=== PATIENT | female | born 1995 | race Caucasian/White ===

== ENCOUNTER 2016-11-11 07:15 | Emergency (ER) | payer BC ==
[~2016-11-11] VITALS: Wt 100.0 kg
[~2016-11-11 07:15] MED LIST: AZIT250T94 PO; PRED20TA PO
[2016-11-11] MEDS ORDERED: ONDANSETRON 4 MG INJ IV STA ×3 (07:33→10:01)
[2016-11-11] MEDS ORDERED: morphine 4 MG/ML VIAL IV STA ×2 (07:33→10:06)
[2016-11-11] MEDS ORDERED: SOD CHLORIDE 0.9% 1,000 ML IV STA (07:33)
--- NOTE | 2016-11-11 07:41 | ERD ---
ER Documentation Chief Complaint Date/Time DATE: 11/11/16 TIME: 07:35 Chief Complaint PELVIC PAIN STARTED THIS AM UNKNOWN IF PREG HPI 21-year-old female with a history of hypertension presents to the emergency department with complaints of right lower quadrant abdominal pain since this morning. She states the pain is currently a 9 out of 10 constant throbbing and localized to the right lower quadrant. She states she attempted to treat her pain with 2 Advil this morning with no relief. She denies any bleeding, discharge, pelvic pain, flank pain, rash, mass, or back pain. She does note slight pain with urination since this morning. Patient denies fever. Patient is not on any medications currently and states she is not sexually active. Last normal period was 1 month ago today. She denies any history of abdominal surgeries. She denies chest pain, shortness of breath, nausea, vomiting, diarrhea. ROS All systems reviewed and are negative except as per history of present illness. Medications Home Meds Active Scripts Ibuprofen* (Motrin*) 600 Mg Tab, 600 MG PO Q6, #30 TAB Prov:BRAULIO CHEUNG PA-C 11/11/16 Acetaminophen* (Tylenol*) 325 Mg Tablet, 2 TAB PO Q6 Y for PAIN AND OR ELEVATED TEMP, #20 TAB Prov:BRAULIO CHEUNG PA-C 11/11/16 Hydrocodone/Acetaminophen ([place] 10-325 Tablet) 1 Each Tablet, 1 TAB PO Q6H Y for PAIN, #7 TAB Prov:BRAULIO CHEUNG PA-C 11/11/16 Ondansetron (Ondansetron Odt) 4 Mg Tab.rapdis, 4 MG PO Q6H Y for NAUSEA AND/OR VOMITING, #10 TAB Prov:BRAULIO CHEUNG PA-C 11/11/16 Azithromycin* (Zithromax*) 250 Mg Tablet, 250 MG PO .[place] DIRECTED, #6 TAB TAKE 500 MG (2 TABS) THE FIRST DAY THEN 250 MG (1 TAB) DAYS 2-5 Prov:AN DAMON PA-C 02/09/16 Prednisone* (Prednisone*) 20 Mg Tab, 40 MG PO DAILY for 4 Days, TAB Prov:AN DAMON PA-C 02/09/16 Allergies Allergies: Coded Allergies: No Known Allergy (Unverified , 01/09/16) PMhx/Soc Medical and Surgical Hx: pt denies Medical Hx, pt denies Surgical Hx History of Surgery: No Anesthesia Reaction: No Hx Neurological Disorder: No Hx Respiratory Disorders: No Hx Cardiac Disorders: No Hx Psychiatric Problems: No Hx Miscellaneous Medical Probl: No Hx Alcohol Use: No Hx Substance Use: No Hx Tobacco Use: No Physical Exam Vitals Vital Signs Date Time Temp Pulse Resp B/P Pulse Ox O2 Delivery O2 Flow Rate FiO2 11/11/16 07:21 98.0 78 18 191/91 99 Physical Exam General: Well developed, well nourished, interactive, no distress Head: Normocephalic, atraumatic EENT: Pupils equally reactive, EOM intact, posterior pharynx without exudates, uvula midline, tympanic membranes without erythema or swelling bilaterally Neck: Supple, no lymphadenopathy Respiratory: Lungs clear bilaterally, no distress Cardiovascular: RRR, no murmurs, rubs, or gallops Abdominal: Soft, severe tenderness to palpation surrounding right lower quadrant. Positive McBurney sign. Positive rebound tenderness. Negative Oakley sign. non-distended, no peritoneal signs. : Deferred MSK: No edema, no unilateral swelling, no flank pain Nurologic: Alert, appropriate Skin: No rash Result Diagram: 11/11/16 0749 11/11/16 0749 Results 24 hrs Laboratory Tests Test 11/11/16 07:49 11/11/16 08:52 Activated Partial Thromboplast Time 30.4Sec Alanine Aminotransferase (ALT/SGPT) 28IU/L Albumin 3.9g/dl Albumin/Globulin Ratio 0.97 Alkaline Phosphatase 97IU/L Anion Gap 15 Aspartate Amino Transf (AST/SGOT) 19IU/L Basophils # 0.010^3/ul Basophils % 0.4% Beta HCG, Quantitative < 2.4mIU/ml Blood Morphology Comment Blood Urea Nitrogen 8mg/dl Calcium Level 9.5mg/dl Carbon Dioxide Level 26mmol/L Chloride Level 106mmol/L Creatinine 0.46mg/dl Direct Bilirubin 0.00mg/dl Eosinophils # 0.010^3/ul Eosinophils % 0.0% Globulin 4.00g/dl Glucose Level 105mg/dl Hematocrit 37.7% Hemoglobin 13.0g/dl INR International Normalized Ratio 1.02 Indirect Bilirubin 0.1mg/dl Lipase 58U/L Lymphocytes # 1.910^3/ul Lymphocytes % 15.0% Mean Corpuscular Hemoglobin 28.8pg Mean Corpuscular Hemoglobin Concent 34.3g/dl Mean Corpuscular Volume 84.0fl Mean Platelet Volume 8.2fl Monocytes # 0.410^3/ul Monocytes % 3.5% Neutrophils # 10.110^3/ul Neutrophils % 81.1% Nucleated Red Blood Cells # 0.010^3/ul Nucleated Red Blood Cells % 0.0/100WBC Platelet Count 28110^3/UL Potassium Level 4.4mmol/L Prothrombin Time 13.4Sec Prothrombin Time Ratio 1.0 Red Blood Count 4.4910^6/ul Red Cell Distribution Width 13.6% Sodium Level 143mmol/L Total Bilirubin 0.1mg/dl Total Protein 7.9g/dl White Blood Count 12.410^3/ul Urine Bacteria RARE Urine Bilirubin NEGATIVE Urine Clarity CLEAR Urine Color LT. YELLOW Urine Epithelial Cells RARE Urine Glucose NEGATIVE% Urine Hemoglobin NEGATIVE Urine Ketones NEGATIVE Urine Leukocyte Esterase 1+ Urine Microscopic RBC NONE SEEN/HPF Urine Microscopic WBC 0-2/HPF Urine Nitrite NEGATIVE Urine Specific [place] <=1.005 Urine Total Protein NEGATIVE Urine Urobilinogen 0.2 E.U./dL Urine pH 5.5 Current Medications Medications (Trade) Dose Ordered Sig/Lonnie Route PRN Reason Start Time Stop Time Status Last Admin Dose Admin Sodium Chloride (NS) 1,000 ml @ 1,000 mls/hr Q1H STAT IV 11/11/16 07:33 11/11/16 08:32 DC 11/11/16 07:45 Morphine Sulfate (morphine) 4 mg ONCE STAT IV 11/11/16 07:33 11/11/16 07:36 DC 11/11/16 07:45 Ondansetron HCl (Zofran Inj) 4 mg ONCE STAT IV 11/11/16 07:33 11/11/16 07:36 DC 11/11/16 07:45 Ondansetron HCl (Zofran Inj) 4 mg ONCE STAT IV 11/11/16 08:04 11/11/16 08:05 Cancel Morphine Sulfate (morphine) 4 mg ONCE ONCE IM 11/11/16 08:30 11/11/16 08:31 Cancel Procedures/MDM PROCEDURE: CT Abdomen and Pelvis without intravenous contrast. CLINICAL INDICATION: Short right lower quadrant pain with vomiting. . TECHNIQUE: CT scan of the abdomen and pelvis without intravenous contrast was performed on a multi-slice CT scanner. Coronal and sagittal reformatted images were obtained from the axial source images. Images were reviewed on a high- resolution PACS workstation. Total DLP = 1531.9 mGy-cm. CTDIvol = 23 mGy. One or more of the following dose reduction techniques were used: Automated exposure control. Adjustment of the mA and/or kV according to patient size. Use of iterative reconstruction technique. COMPARISON: None. FINDINGS: CT abdomen and pelvis: The lung bases are clear. The heart size is normal in size. The liver is normal in size and density without focal mass or intrahepatic biliary dilatation. The spleen is normal in size and homogeneous in density. The pancreas as visualized is normal. The gallbladder shows no evidence of stones or distension . The adrenal glands are normal. The kidneys are symmetrically unremarkable. No urolithiasis, obstructive uropathy, or solid mass lesion is seen. The stomach is partially collapsed, but is grossly unremarkable. The small bowels are unremarkable. The colon and rectum are normal. The appendix is normal. There is no evidence of appendicitis or diverticulitis. The pelvic organs are normal. The bladder is normal. There is a small amount of free fluid in the pelvis. There is no abdominal or pelvic adenopathy, free air, mass or mesenteric inflammation. The aorta is normal in caliber and course. The osseous structures are intact. No osteolytic or osteoblastic lesions are identified. The soft tissues are within normal limits. Lack of IV and oral contrast limits sensitivity of exam. IMPRESSION: 1. Small free fluid in the pelvis. 2. Otherwise unremarkable noncontrast CT abdomen and pelvis without acute pathology identified. RPTAT: JJ .Juan Huertas MD, MD Date Time Electronically viewed and signed by .Juan Huertas MD, on 11/11/2016 09:28 .L/ CC: BRAULIO CHEUNG PA-C 21-year-old female with a history of hypertension presents the emergency department complaining of right lower quadrant pain since this morning. Vital signs were reviewed. Patient is afebrile. Patient is not hypoxic. Abdominal exam revealed right lower quadrant tenderness to palpation as well as rebound tenderness. CBC showed no evidence of systemic infection or severe anemia. CMP showed no evidence of electrolyte abnormalities, severe acidosis, alkalosis , renal failure, or liver disease. Lipase showed no evidence of acute pancreatitis. UA showed evidence of mild infection without hematuria. Urine test was negative. Given these findings, the patients presentation is most consistent with right lower quadrant abdominal pain and UTI. I have a low suspicion for appendicitis, ectopic , diverticulitis, bowel obstruction, ovarian torsion, cholecystitis, renal stones, renal stones, UTI, serious bacterial infection, or sepsis. Given the patient's history of right lower quadrant tenderness, I recommended returning to this facility or primary care physician within the next 12 hours for an abdominal recheck. Based on patient's history of present illness and physical examination the decision was made to discharge. The patient was re-evaluated after ED treatment and stabilizing measures, and symptoms have improved. There is no evidence of life threatening injuries or illnesses at this time. On re-examination, patient resting in no distress, stable vital signs, reports feeling better and safe for discharge with outpatient follow up with PMD in 1-2 days. Patient given return precautions. Patient and family expressed understanding of and agreement with plan. Patient to continue Tylenol and Motrin for pain as needed. BRAULIO CHEUNG PA-C Nov 11, 2016 07:41
[2016-11-11 08:05] LABS: BASOPHILS % 0.4 % (0.0-2.0); HEMATOCRIT 37.7 % (37.0-47.0); LYMPHOCYTES # 1.9 10^3/ul (0.8-2.9); MEAN CORPUSCULAR HEMOGLOBIN 28.8 pg (29.0-33.0); MEAN CORPUSCULAR HGB CONC 34.3 g/dl (32.0-37.0); MEAN PLATELET VOLUME 8.2 fl (7.4-10.4); MONOCYTE # 0.4 10^3/ul (0.3-0.9); MONOCYTES % 3.5 % (0.0-13.0); NEUTROPHIL # 10.1 10^3/ul (1.6-7.5); NEUTROPHILS % 81.1 % (30.0-74.0); PLATELET COUNT 265 10^3/UL (140-440); RED BLOOD COUNT 4.49 10^6/ul (4.20-5.40); RED CELL DISTRIBUTION WIDTH 13.6 % (11.5-14.5); UNCORRECTED WBC 12.4 10^3/ul (4.8-10.8); WHITE BLOOD COUNT 12.4 10^3/ul (4.8-10.8)
[2016-11-11 08:08] LABS: CONDITION 1
[2016-11-11 08:11] LABS: ALBUMIN 3.9 g/dl (3.3-4.9)
[2016-11-11 08:12] LABS: POTASSIUM 4.4 mmol/L (3.5-5.1)
[2016-11-11 08:14] LABS: BILIRUBIN,INDIRECT 0.1 mg/dl (0-1.1); BILIRUBIN,TOTAL 0.1 mg/dl (0.2-1.3); CREATININE 0.46 mg/dl (0.44-1.00)
[2016-11-11 08:15] LABS: ALBUMIN/GLOBULIN RATIO 0.97; CALCIUM 9.5 mg/dl (8.4-10.2); TOTAL PROTEIN 7.9 g/dl (6.1-8.1)
[2016-11-11 08:16] LABS: INR 1.02; PROTIME 13.4 Sec (12.2-14.2)
[2016-11-11 08:17] LABS: PARTIAL THROMBOPLASTIN TIME 30.4 Sec (25.0-35.0)
[2016-11-11] MEDS ORDERED: morphine 10 MG INJ IM ONE ×2 (08:30→10:30)
--- NOTE | 2016-11-11 09:28 | RADRPT ---
PROCEDURE: CT Abdomen and Pelvis without intravenous contrast. CLINICAL INDICATION: Short right lower quadrant pain with vomiting. . TECHNIQUE: CT scan of the abdomen and pelvis without intravenous contrast was performed on a multi -slice CT scanner. Coronal and sagittal reformatted images were obtained from the axial source image s. Images were reviewed on a high-resolution PACS workstation. Total DLP = 1531.9 mGy-cm. CTDIvol = 23 mGy. One or more of the following dose reduction techniques were used: Automated exposure control. Adjustment of the mA and/or kV according to patient size. Use of iterative reconstruction technique. COMPARISON: None. FINDINGS: CT abdomen and pelvis: The lung bases are clear. The heart size is normal in size. The liver is normal in size and densit y without focal mass or intrahepatic biliary dilatation. The spleen is normal in size and homogeneo us in density. The pancreas as visualized is normal. The gallbladder shows no evidence of stones or distension . The adrenal glands are normal. The kidneys are symmetrically unremarkable. No ur olithiasis, obstructive uropathy, or solid mass lesion is seen. The stomach is partially collapsed, but is grossly unremarkable. The small bowels are unremarkable. The colon and rectum are normal. The appendix is normal. There is no evidence of appendicitis or di verticulitis. The pelvic organs are normal. The bladder is normal. There is a small amount of free f luid in the pelvis. There is no abdominal or pelvic adenopathy, free air, mass or mesenteric inflamm ation. The aorta is normal in caliber and course. The osseous structures are intact. No osteolytic or osteo blastic lesions are identified. The soft tissues are within normal limits. Lack of IV and oral con trast limits sensitivity of exam. IMPRESSION: 1. Small free fluid in the pelvis. 2. Otherwise unremarkable noncontrast CT abdomen and pelvis without acute pathology identified. RPTAT: JJ .Juan Huertas MD, Date Time Electronically viewed and signed by .Juan Huertas MD, on 11/11/2016 09:28 .L/
[2016-11-11 09:47] LABS: ADD UMIC YES; URINE BILIRUBIN (Dip) NEGATIVE (NEGATIVE); URINE BLOOD (Dip) NEGATIVE (NEGATIVE); URINE COLOR LT. YELLOW (YELLOW); URINE GLUCOSE (Dip) NEGATIVE (NEGATIVE); URINE KETONES (Dip) NEGATIVE (NEGATIVE); URINE LEUKOCYTE ESTERASE (Dip) 1+ (NEGATIVE); URINE NITRITE (Dip) NEGATIVE (NEGATIVE); URINE TOTAL PROTEIN (Dip) NEGATIVE (NEGATIVE); URINE UROBILINOGEN (Dip) 0.2 E.U./dL (0.1-1.0)
[2016-11-11 09:55] LABS: BACTERIA,URINE RARE; URINE RBCS NONE SEEN /HPF (0)
[2016-11-11] MEDS ORDERED: IBUP-1542 PO (09:56)
[2016-11-11] MEDS ORDERED: HYDR-902 PO (09:56)
[2016-11-11] MEDS ORDERED: ACET325T33 PO (09:56)
[2016-11-11] MEDS ORDERED: ONDA4TAB14 PO (09:56)
[2016-11-11] MEDS ORDERED: CEPH-443 PO (10:02)
== END 2016-11-11 12:00 | disposition home or self-care (01) ==
LOC: FTE 07:15
DX: R10.31 Right lower quadrant pain (principal); I10 Essential (primary) hypertension; R10.2 Pelvic and perineal pain; N39.0 Urinary tract infection, site not specified; R11.10 Vomiting, unspecified
CPT/HCPCS: 74176; 80053; 81001; 81003; 83690; 84702; 85025; 85610; 85730; 96374; 96375; 96376; J2270; J2405; J7030; Z7502

== ENCOUNTER 2016-11-23 20:37 | Emergency (ER) | payer BC ==
[~2016-11-23] VITALS: Ht 162.6 cm; Wt 99.0 kg
[~2016-11-23 20:37] MED LIST changes: +CEPH-443 PO; +HYDR-902 PO; +IBUP-1542 PO; +ONDA4TAB14 PO
[2016-11-23 21:02] VITALS: Ht 162.6 cm; Wt 99.0 kg
--- NOTE | 2016-11-24 02:00 | RADRPT ---
PROCEDURE: XR Hand. CLINICAL INDICATION: Pain. TECHNIQUE: Three views of the right hand. COMPARISON: None available. FINDINGS: No fracture or dislocation is identified. The joint spaces are preserved. There is no significant soft tissue swelling. IMPRESSION: 1. No fracture or dislocation of the right hand. RPTAT: HTAR .Antonio Wood MD, MD Date Time Electronically viewed and signed by .Antonio Wood MD, on 11/24/2016 02:00 .R/
--- NOTE | 2016-11-24 02:01 | RADRPT ---
PROCEDURE: XR Wrist. CLINICAL INDICATION: Pain. TECHNIQUE: Three views of the right wrist. COMPARISON: None available. FINDINGS: No fracture or dislocation is identified. The joint spaces are preserved. There is no significant soft tissue swelling. IMPRESSION: 1. No fracture or dislocation of the right wrist. RPTAT: HTAR .Antonio Wood MD, MD Date Time Electronically viewed and signed by .Antonio Wood MD, on 11/24/2016 02:00 .R/
[2016-11-24] MEDS ORDERED: IBUP-1542 PO (02:04)
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
[2016-11-24 02:28] VITALS: BP 175/120; PULSE 68; RESP 17; TEMP 98.2
== END 2016-11-24 02:28 | disposition home or self-care (01) ==
LOC: FTE 20:37
DX: S63.501A Unspecified sprain of right wrist, initial encounter (principal); X50.9XXA Other and unspecified overexertion or strenuous movements or postures, initial encounter; Y92.9 Unspecified place or not applicable

== ENCOUNTER 2017-05-17 11:37 | Emergency (ER) | payer BC ==
[~2017-05-17] VITALS: Ht 162.6 cm; Wt 93.5 kg
[2017-05-17 11:55] VITALS: Ht 162.6 cm; Wt 93.5 kg
[2017-05-17] MEDS ORDERED: KETOROLAC 30 MG INJ IV STA (12:03)
[2017-05-17] MEDS ORDERED: ONDANSETRON 4 MG INJ IV STA (12:03)
--- NOTE | 2017-05-17 12:09 | ERD ---
ER Documentation Chief Complaint Date/Time DATE: 05/17/17 TIME: 12:07 Chief Complaint right lower quad abd pain since yesterday mary BARRIENTOS Patient is a 21-year-old female with no past medical history presents to the emergency department for concerns of right lower quadrant abdominal pain which started yesterday evening. Patient describes the pain to be intermittent and sharp in nature. Patient states that the pain does not radiate. Patient also reports vomiting which started this morning. Patient states she had 2 episodes of nonbloody nonbilious vomiting. Patient reports tactile fevers. Patient denies any cough, ear pain, throat pain or rhinorrhea. Patient denies any dysuria, frequency, urgency or hematuria. Patient states her last mental period was on 05-04-17. Patient is sexually active. Patient denies any excessive vaginal bleeding or vaginal discharge. ROS All systems reviewed and are negative except as per history of present illness. Medications Home Meds Active Scripts Hydrocodone/Acetaminophen ([place] 5-325 Tablet) 1 Each Tablet, 1 TAB PO Q6H Y for PAIN, #7 TAB Prov:ROSALINO SUAREZ PA-C 05/17/17 Ibuprofen* (Motrin*) 600 Mg Tab, 600 MG PO Q6, #20 TAB Prov:ROSALINO SUAREZC 05/17/17 Ibuprofen* (Motrin*) 600 Mg Tab, 600 MG PO Q6H Y for PAIN AND OR ELEVATED TEMP, #30 TAB Prov:CATRACHITO SOLIZ NP 11/24/16 Cephalexin* (Keflex*) 500 Mg Capsule, 500 MG PO QID for 7 Days, CAP Prov:BRAULIO CHEUNG PA-C 11/11/16 Ibuprofen* (Motrin*) 600 Mg Tab, 600 MG PO Q6, #30 TAB Prov:BRAULIO CHEUNG PA-C 11/11/16 Hydrocodone/Acetaminophen ([place] 10-325 Tablet) 1 Each Tablet, 1 TAB PO Q6H Y for PAIN, #7 TAB Prov:BRAULIO CHEUNG PA-C 11/11/16 Ondansetron (Ondansetron Odt) 4 Mg Tab.rapdis, 4 MG PO Q6H Y for NAUSEA AND/OR VOMITING, #10 TAB Prov:BRAULIO CHEUNG PA-C 11/11/16 Azithromycin* (Zithromax*) 250 Mg Tablet, 250 MG PO .MustaphaPACK DIRECTED, #6 TAB TAKE 500 MG (2 TABS) THE FIRST DAY THEN 250 MG (1 TAB) DAYS 2-5 Prov:AN DAMON PA-C 02/09/16 Prednisone* (Prednisone*) 20 Mg Tab, 40 MG PO DAILY for 4 Days, TAB Prov:AN DAMON PA-C 02/09/16 Allergies Allergies: Coded Allergies: No Known Allergy (Unverified , 01/09/16) PMhx/Soc History of Surgery: No Anesthesia Reaction: No Hx Neurological Disorder: No Hx Respiratory Disorders: No Hx Cardiac Disorders: No Hx Psychiatric Problems: No Hx Miscellaneous Medical Probl: No Hx Alcohol Use: No Hx Substance Use: No Hx Tobacco Use: No Physical Exam Vitals Vital Signs Date Time Temp Pulse Resp B/P Pulse Ox O2 Delivery O2 Flow Rate FiO2 05/17/17 11:55 99.4 114 16 159/104 97 Physical Exam GENERAL: Well-developed, well-nourished female. Appears in no acute distress. HEAD: Normocephalic, atraumatic. EYES: Pupils are equally reactive bilaterally. EOMs grossly intact. No conjunctival erythema. ENT: Moist mucous membranes. No uvula deviation. No kissing tonsils. NECK: Supple. No meningismus. Normal range of motion of the neck. LUNG: Clear to auscultation bilaterally. No rhonchi, wheezing, rales or coarse breath sounds. HEART: Regular rate and rhythm. No murmurs, rubs or gallops. ABDOMEN: No scars, ecchymosis or rashes noted. Soft, and nondistended. Tender to palpation in the right lower quadrant. Positive bowel sounds in all four quadrants. No rebound tenderness, no guarding. (-) McBurney's point tenderness. No CVA tenderness. BACK: No midline tenderness. EXTREMITIES: Equal pulses bilaterally. No peripheral clubbing, cyanosis or edema. No unilateral leg swelling. NEUROLOGIC: Alert and oriented. Moving all four extremities without any difficulty. Normal speech. Steady gait. SKIN: Normal color. Warm and dry. No rashes or lesions. Result Diagram: 05/17/17 1220 05/17/17 1220 Results 24 hrs Laboratory Tests Test 05/17/17 12:20 White Blood Count 13.310^3/ul Red Blood Count 4.3710^6/ul Hemoglobin 11.9g/dl Hematocrit 36.4% Mean Corpuscular Volume 83.3fl Mean Corpuscular Hemoglobin 27.2pg Mean Corpuscular Hemoglobin Concent 32.7g/dl Red Cell Distribution Width 13.4% Platelet Count 63126^3/UL Mean Platelet Volume 9.7fl Neutrophils % 75.9% Lymphocytes % 18.2% Monocytes % 4.9% Eosinophils % 0.0% Basophils % 0.5% Nucleated Red Blood Cells % 0.0/100WBC Neutrophils # 10.110^3/ul Lymphocytes # 2.410^3/ul Monocytes # 0.710^3/ul Eosinophils # 0.010^3/ul Basophils # 0.110^3/ul Nucleated Red Blood Cells # 0.010^3/ul Urine Color YELLOW Urine Clarity SLIGHTLY CLOUDY Urine pH 6.0 Urine Specific [place] 1.023 Urine Ketones TRACEmg/dL Urine Nitrite NEGATIVEmg/dL Urine Bilirubin NEGATIVEmg/dL Urine Urobilinogen NEGATIVEmg/dL Urine Leukocyte Esterase TRACELeu/ul Urine Microscopic RBC 2/HPF Urine Microscopic WBC 2/HPF Urine Squamous Epithelial Cells FEW/HPF Urine Bacteria FEW/HPF Urine Mucus MODERATE/HPF Urine Hemoglobin NEGATIVEmg/dL Urine Glucose NEGATIVEmg/dL Urine Total Protein 2+mg/dl Sodium Level 145mmol/L Potassium Level 3.9mmol/L Chloride Level 103mmol/L Carbon Dioxide Level 25mmol/L Anion Gap 21 Blood Urea Nitrogen 8mg/dl Creatinine 0.58mg/dl Glucose Level 108mg/dl Calcium Level 9.6mg/dl Total Bilirubin 0.2mg/dl Direct Bilirubin 0.00mg/dl Indirect Bilirubin 0.2mg/dl Aspartate Amino Transf (AST/SGOT) 20IU/L Alanine Aminotransferase (ALT/SGPT) 29IU/L Alkaline Phosphatase 111IU/L Total Protein 8.5g/dl Albumin 4.6g/dl Globulin 3.90g/dl Albumin/Globulin Ratio 1.17 Lipase 49U/L Current Medications Medications (Trade) Dose Ordered Sig/Lonnie Route PRN Reason Start Time Stop Time Status Last Admin Dose Admin Ondansetron HCl (Zofran Inj) 4 mg ONCE STAT IV 05/17/17 12:03 05/17/17 12:05 DC 05/17/17 12:21 Ketorolac Tromethamine (Toradol) 30 mg ONCE STAT IV 05/17/17 12:03 05/17/17 12:05 DC 05/17/17 12:22 Acetaminophen/ Hydrocodone Bitart ([place] (5/325)) 1 tab ONCE ONCE PO 05/17/17 14:30 05/17/17 14:31 DC 05/17/17 14:25 Procedures/MDM ED COURSE: The patient was stable throughout ED course. I kept the patient and/or family informed of laboratory and diagnostic imaging results throughout the ED course. DIAGNOSTIC IMAGING: Read by radiologist. Patient: KIERRA FAN : 1995 Age: 21 Sex: F MR #: [id number] DOS: 05/17/17 1203 Ordering MD: ROSALINO SUAREZ PA-C Location: E Room/Bed: PROCEDURE: CT Abdomen and Pelvis without contrast CLINICAL INDICATION: Right lower quadrant abdominal pain TECHNIQUE: Transaxial images were obtained through the abdomen and pelvis on a multi-slice scanner without the intravenous contrast administration. No oral contrast had previously been given. Sagittal and coronal re-formations were subsequently reconstructed. One or more of the following dose reduction techniques were used: - Automated exposure control. - Adjustment of the mA and/or kV according to patient size. - Use of iterative reconstruction technique. Radiation dose: CTDIvol = 16.79 mGy; DLP = 1088.43 mGy-cm. COMPARISON: 11/11/2016 FINDINGS: Lung bases: The visualized lung bases appear unremarkable. Liver: The liver remains mildly enlarged but again no focal lesion is evident. Gallbladder: The wall is not thickened. No radiopaque stones are identified. Bile ducts: The intra and extrahepatic bile ducts are normal in caliber. Pancreas: Appears normal with no mass or inflammation evident. Spleen: Normal in size with no focal lesion. Adrenals: Normal with no mass identified. Kidneys, ureters and bladder: The kidneys are normal in size and there is no mass, pathological calcification, or hydronephrosis evident. There is no perinephric stranding. The ureters are normal in caliber and no ureteroliths are identified. The bladder appears unremarkable. Reproductive organs: The uterus is midline. A 2.2 cm right adnexal cyst is again evident. Stomach and bowel: The stomach and bowel again appear unremarkable without evidence of bowel obstruction or inflammation. Appendix: A normal vermiform appendix is again evident. Peritoneum: There is no longer free intraperitoneal fluid and no free air is identified. Aorta: Normal in caliber with no aneurysmal dilatation. IVC: Unremarkable. Lymph nodes: No pathologically enlarged nodes are identified. Osseous structures: The osseous elements appear intact. IMPRESSION: 1. Since the previous CT done 11/11/2016, the bowel gas pattern has improved and is now unremarkable with no ileus evident and without evidence of bowel obstruction or inflammation. A normal vermiform appendix is identified. 2. There is no evidence of urinary outflow obstruction or ureterolithiasis with the bladder appearing unremarkable. 3. Persistent 2.2 cm right adnexal cyst but there is no longer free intraperitoneal fluid and no free air is evident. 4. The liver remains mildly enlarged but no focal lesion identified. Physician Laly Date Time Electronically viewed and signed by Physician Laly on 05/17/2017 13:00 RH/ CC: ROSALINO SUAREZ PA-C Patient: KIERRA FAN : 1995 Age: 21 Sex: F MR #: [id number] DOS: 05/17/17 1325 Ordering MD: ROSALINO SUAREZ PA-C Location: [facility]TE Room/Bed: PROCEDURE: US Pelvis. CLINICAL INDICATION: Pelvic pain TECHNIQUE: Multiple sonographic images of the pelvis were obtained utilizing a transabdominal and endovaginal technique. The images were reviewed on a PACS workstation. COMPARISON: CT May 17, 2017 and ultrasound January 10, 2016 FINDINGS: The uterus is visualized and measures 6.7 x 3.0 x 3.3 cm. The endometrial echo complex measures 7.2 mm thickness. No uterine masses are identified. The right ovary measures 3.4 x 1.7 x 2.1 cm . The left ovary measures 3.3 x 1.8 x 1.7 cm. Multiple simple-appearing follicles are seen on both ovaries. The ovaries demonstrate normal vascularity. A 3.0 cm simple cyst is seen in the right adnexa. IMPRESSION: Stable 3.0 cm simple cyst in the right adnexa. This may reflect a paraovarian cyst. Continued follow-up to assess stability can be considered. Otherwise, unremarkable exam. If further characterization of the organs of the pelvis is needed MRI should be considered. RPTAT: AA .Kevin Inman MD, Date Time Electronically viewed and signed by .Kevin Inman MD, on 05/17/2017 14:18 .P/ CC: ROSALINO SUAREZ PA-C MEDICATIONS GIVEN: Toradol, [place] Patient tolerated medication well with no adverse reactions. Patient reported improvement in pain. MEDICAL DECISION MAKING: This is a 21-year-old female presents the emergency department with right lower quadrant pain and vomiting 1 day. Vital signs were reviewed. Patient is afebrile. CBC showed elevated white count of 13.3. Patient's hemoglobin was noted to be 11.9, slight anemia noted. CMP showed no evidence of electrolyte abnormalities, severe acidosis, alkalosis, renal failure, or liver disease. Lipase showed no evidence of acute pancreatitis. UA showed no evidence of acute infection or hematuria. Low suspicion for UTI, pyelonephritis or nephrolithiasis. Urine test was negative. CT abdomen and pelvis showed 1. Since the previous CT done 11/11/2016, the bowel gas pattern has improved and is now unremarkable with no ileus evident and without evidence of bowel obstruction or inflammation. A normal vermiform appendix is identified. 2. There is no evidence of urinary outflow obstruction or ureterolithiasis with the bladder appearing unremarkable. 3. Persistent 2.2 cm right adnexal cyst but there is no longer free intraperitoneal fluid and no free air is evident. 4. The liver remains mildly enlarged but no focal lesion identified. Pelvic ultrasound showed Stable 3.0 cm simple cyst in the right adnexa. This may reflect a paraovarian cyst. Continued follow-up to assess stability can be considered. Otherwise, unremarkable exam. The ovaries demonstrate normal vascularity. At this time, patient's presentation is most consistent with an ovarian cyst in the right adnexa. Low suspicion for ovarian torsion, appendicitis, bowel obstruction, bowel perforation, mesenteric ischemia, likely cystitis, pancreatitis, diverticulosis, diverticulitis, UTI, nephritis, , ectopic or tubo-ovarian abscess. PRESCRIPTIONS: [place], ibuprofen DISCHARGE: At this time, patient is stable for discharge and outpatient management. Patient was given a copy of all imaging studies obtained today. Patient was encouraged to follow-up with an [facility] in the next 1 to 2 days for further management of her symptoms. I have instructed the patient to follow-up with his /her primary care physician in 1-2 days. I have instructed the patient to promptly return to the ER at any time for any new or worsening symptoms including increased pain, nausea, vomiting, diarrhea, fever, weakness or LOC. The patient and/or family expressed understanding of and agreement with this plan. All questions were answered. Home care instructions were provided. Departure Diagnosis: Primary Impression: Abdominal pain Abdominal location: right lower quadrant Qualified Code: R10.31 - Right lower quadrant abdominal pain Additional Impression: Ovarian cyst Laterality: right Qualified Code: N83.201 - Cyst of right ovary Condition: Stable Patient Instructions: Abdominal Pain Referrals: MICHAEL WEST (PCP) Additional Instructions: Call your primary care doctor TOMORROW for an appointment during the next 1-2 days.See the doctor sooner or return here if your condition worsens before your appointment time. ROSALINO SUAREZ PA-C May 17, 2017 12:09
[2017-05-17 12:30] LABS: BASOPHIL # 0.1 10^3/ul (0.0-0.1); BASOPHILS % 0.5 % (0.0-2.0); HEMATOCRIT 36.4 % (37.0-47.0); HEMOGLOBIN 11.9 g/dl (12.0-16.0); LYMPHOCYTES # 2.4 10^3/ul (0.8-2.9); LYMPHOCYTES % 18.2 % (18.0-55.0); MEAN CORPUSCULAR HEMOGLOBIN 27.2 pg (29.0-33.0); MEAN CORPUSCULAR HGB CONC 32.7 g/dl (32.0-37.0); MEAN CORPUSCULAR VOLUME 83.3 fl (72.0-104.0); MEAN PLATELET VOLUME 9.7 fl (7.4-10.4); MONOCYTE # 0.7 10^3/ul (0.3-0.9); MONOCYTES % 4.9 % (0.0-13.0); NEUTROPHIL # 10.1 10^3/ul (1.6-7.5); NEUTROPHILS % 75.9 % (30.0-74.0); PLATELET COUNT 321 10^3/UL (140-415); RED BLOOD COUNT 4.37 10^6/ul (4.20-5.40); RED CELL DISTRIBUTION WIDTH 13.4 % (11.5-14.5); WHITE BLOOD COUNT 13.3 10^3/ul (4.8-10.8)
[2017-05-17 12:41] LABS: ALBUMIN 4.6 g/dl (3.3-4.9); ALBUMIN/GLOBULIN RATIO 1.17; BILIRUBIN,INDIRECT 0.2 mg/dl (0-1.1); BILIRUBIN,TOTAL 0.2 mg/dl (0.2-1.3); CALCIUM 9.6 mg/dl (8.4-10.2); CREATININE 0.58 mg/dl (0.44-1.00); POTASSIUM 3.9 mmol/L (3.5-5.1); TOTAL PROTEIN 8.5 g/dl (6.1-8.1)
[2017-05-17 12:43] LABS: ADD UMIC YES; UR ASCORBIC ACID NEGATIVE (NEGATIVE); UR BACTERIA FEW /HPF (NONE SEEN); UR BILIRUBIN (Dip) NEGATIVE (NEGATIVE); UR BLOOD (Dip) NEGATIVE (NEGATIVE); UR CLARITY SLIGHTLY CLOUDY (CLEAR); UR COLOR YELLOW (YELLOW); UR GLUCOSE (Dip) NEGATIVE (NEGATIVE); UR KETONES (Dip) TRACE mg/dL (NEGATIVE); UR LEUKOCYTE ESTERASE (Dip) TRACE Leu/ul (NEGATIVE); UR MUCUS MODERATE /HPF (NONE SEEN); UR NITRITE (Dip) NEGATIVE (NEGATIVE); UR RBC 2 /HPF (0-5); UR SPECIFIC GRAVITY (Dip) 1.023 (1.003-1.030); UR SQUAMOUS EPITHELIAL CELL FEW /HPF (FEW); UR TOTAL PROTEIN (Dip) 2+ mg/dl (NEGATIVE); UR UROBILINOGEN (Dip) NEGATIVE (NEGATIVE)
--- NOTE | 2017-05-17 13:00 | RADRPT ---
PROCEDURE: CT Abdomen and Pelvis without contrast CLINICAL INDICATION: Right lower quadrant abdominal pain TECHNIQUE: Transaxial images were obtained through the abdomen and pelvis on a multi-slice scanner without the intravenous contrast administration. No oral contrast had previously been given. Sagit joyce and coronal re-formations were subsequently reconstructed. One or more of the following dose reduction techniques were used: - Automated exposure control. - Adjustment of the mA and/or kV according to patient size. - Use of iterative reconstruction technique. Radiation dose: CTDIvol = 16.79 mGy; DLP = 1088.43 mGy-cm. COMPARISON: 11/11/2016 FINDINGS: Lung bases: The visualized lung bases appear unremarkable. Liver: The liver remains mildly enlarged but again no focal lesion is evident. Gallbladder: The wall is not thickened. No radiopaque stones are identified. Bile ducts: The intra and extrahepatic bile ducts are normal in caliber. Pancreas: Appears normal with no mass or inflammation evident. Spleen: Normal in size with no focal lesion. Adrenals: Normal with no mass identified. Kidneys, ureters and bladder: The kidneys are normal in size and there is no mass, pathological calc ification, or hydronephrosis evident. There is no perinephric stranding. The ureters are normal in c aliber and no ureteroliths are identified. The bladder appears unremarkable. Reproductive organs: The uterus is midline. A 2.2 cm right adnexal cyst is again evident. Stomach and bowel: The stomach and bowel again appear unremarkable without evidence of bowel obstruc tion or inflammation. Appendix: A normal vermiform appendix is again evident. Peritoneum: There is no longer free intraperitoneal fluid and no free air is identified. Aorta: Normal in caliber with no aneurysmal dilatation. IVC: Unremarkable. Lymph nodes: No pathologically enlarged nodes are identified. Osseous structures: The osseous elements appear intact. IMPRESSION: 1. Since the previous CT done 11/11/2016, the bowel gas pattern has improved and is now unremarkabl e with no ileus evident and without evidence of bowel obstruction or inflammation. A normal vermifor m appendix is identified. 2. There is no evidence of urinary outflow obstruction or ureterolithiasis with the bladder appeari ng unremarkable. 3. Persistent 2.2 cm right adnexal cyst but there is no longer free intraperitoneal fluid and no fr ee air is evident. 4. The liver remains mildly enlarged but no focal lesion identified. Ashley Lyon Physician Date Time Electronically viewed and signed by Ashley Lyon Physician on 05/17/2017 13:00 /
--- NOTE | 2017-05-17 14:19 | RADRPT ---
PROCEDURE: US Pelvis. CLINICAL INDICATION: Pelvic pain TECHNIQUE: Multiple sonographic images of the pelvis were obtained utilizing a transabdominal and endovaginal technique. The images were reviewed on a PACS workstation. COMPARISON: CT May 17, 2017 and ultrasound January 10, 2016 FINDINGS: The uterus is visualized and measures 6.7 x 3.0 x 3.3 cm. The endometrial echo complex measures 7.2 mm thickness. No uterine masses are identified. The right ovary measures 3.4 x 1.7 x 2.1 cm . The left ovary measures 3.3 x 1.8 x 1.7 cm. Multiple simple-appearing follicles are seen on both ovaries. The ovaries demonstrate normal vascularity. A 3.0 cm simple cyst is seen in the right adnexa. IMPRESSION: Stable 3.0 cm simple cyst in the right adnexa. This may reflect a paraovarian cyst. Continued foll ow-up to assess stability can be considered. Otherwise, unremarkable exam. If further characterization of the organs of the pelvis is needed MRI should be considered. RPTAT: AA .Kevin Inman MD, MD Date Time Electronically viewed and signed by .Kevin Inman MD, MD on 05/17/2017 14:18 .P/
[2017-05-17] MEDS ORDERED: HYDROCODONE/APAP (5/325) TAB PO ONE (14:30)
[2017-05-17] MEDS ORDERED: IBUP-1542 PO (14:55)
[2017-05-17] MEDS ORDERED: HYDR-906 PO (14:56)
== END 2017-05-17 15:23 | disposition home or self-care (01) ==
LOC: FTE 11:37
DX: R10.31 Right lower quadrant pain (principal); N83.201 Unspecified ovarian cyst, right side; R11.10 Vomiting, unspecified; R10.2 Pelvic and perineal pain
CPT/HCPCS: 36415; 74176; 76830; 76856; 80053; 81001; 83690; 85025; 96374; 96375; J1885; J2405; Z7502; Z7610

== ENCOUNTER 2017-10-21 09:13 | Emergency (ER) | END 2017-10-21 11:27 | disposition left against medical advice (07) ==

== ENCOUNTER 2017-11-29 21:16 | Emergency (ER) | END 2017-11-30 02:08 | disposition home or self-care (01) ==

== ENCOUNTER 2018-01-24 15:53 | Emergency (ER) | END 2018-01-24 18:59 | disposition home or self-care (01) ==

== ENCOUNTER 2018-05-11 13:30 | Emergency (ER) | END 2018-05-11 16:22 | disposition home or self-care (01) ==

== ENCOUNTER 2018-07-02 18:02 | Emergency (ER) | END 2018-07-02 21:25 | disposition left against medical advice (07) ==

== ENCOUNTER 2018-07-03 12:11 | Emergency (ER) | END 2018-07-03 15:55 | disposition home or self-care (01) ==

== ENCOUNTER 2018-07-25 15:33 | Emergency (ER) | END 2018-07-25 19:04 | disposition home or self-care (01) ==

== ENCOUNTER 2019-01-13 22:25 | Inpatient (IN) | payer BC ==
[~2019-01-13] VITALS: Ht 162.6 cm; Wt 98.7 kg
[~2019-01-13 22:25] MED LIST changes: +ACET500C5 PO; +AZIT250T PO; -AZIT250T94 PO; +HYDR-3980 PO; +HYDR-4011 PO; -HYDR-902 PO; +IBUP-1541 PO; +LORA-441 PO; +METO10TA92 PO; +PROM5SYR2 PO
[2019-01-13] MEDS ORDERED: MAGNESIUM SULFATE 4 GM/100 ML 100 ML IVPB ONE (22:30)
[2019-01-13] MEDS ORDERED: MAGNESIUM SULFATE 4 GM/100 ML 100 ML ONE (22:34)
[2019-01-13 22:37] VITALS: BP 181/128; PULSE 106; RESP 16
[2019-01-13] MEDS: LABETALOL HCL 20MG INJ IV SCH ×4 (22:50→23:52)
[2019-01-13] MEDS: LACTATED RINGER'S 1,000 ML IV SCH (22:55)
[2019-01-13] MEDS ORDERED: ACETAMINOPHEN 325 MG TAB PO PRN (23:00)
[2019-01-13 23:02] VITALS: Ht 162.6 cm; Wt 98.7 kg
[2019-01-13] MEDS: MAGNESIUM SULFATE 20 GM/500 ML 500 ML IV SCH (23:13)
[2019-01-13] MEDS: BETAMET NA PHOS/AC(6 MG/ML) 2 ML INJ SYG IM SCH (23:26)
[2019-01-13] MEDS ORDERED: ONDANSETRON 4 MG INJ ONE (23:50)
[2019-01-13] MEDS: ONDANSETRON 4 MG INJ IV PRN (23:56)
[2019-01-14] MEDS: LABETALOL HCL 20MG INJ IV SCH ×12 (00:14→09:51)
[2019-01-14] MEDS: LABETALOL 100 MG TAB PO SCH ×3 (00:56→21:00)
--- NOTE | 2019-01-14 06:11 | HP ---
Date/Time of Note Date/Time of Note DATE: 01/14/19 TIME: 05:41 OB - History Hx of Present Free Text/Dictation 23 y.o presented to triage at 34w5d with c/o vomiting and headache and back pain. Patient is known to have HTN for 2yrs ,but no medication for HTN during . no record is available , but known to have fetus has gastroschisis. Initial BP 181/128, 200/124 multiple IV labetalol given to bring the BP controlled ,place po labetalol 100mg BID ,along with Mg sulfate, 1st dose of BMZ given UDS neg U/S EFW 2328gm with low CHELLE which is 6.8cm, no evidence of abruptio placenta noted. spot urine shows ++ protein, 24hr urine collection for protein and CR will be done. PIH lab platelet 303 AST 22 ALT 10 CR 0.49 uric acid 6.5 admitted for continue observation and further care ,with perinatalogy consultation. Chief Complaint: headache and vomiting, back pain Estimated Due Date: February 19, 2019 : 1 Para: 0 Spontaneous : 0 Therapeutic : 0 Care: Limited Care Ultrasounds: Abnormal US findings Obstetrical Complications: None Medical Complications: Cardiovascular (hypertension) Past Family/Social History * Past Medical, Surgical, Family and Obstetric Histories reviewed from chart. Blood Type: Unknown Rubella: unknown RPR/VDRL: Unknown GBS Status: Unknown HBsAG: Unknown OB Admission Exam Vital Signs Vital Signs Vital Signs Date Temp Pulse Resp B/P (MAP) Pulse Ox O2 O2 Flow FiO2 Time Delivery Rate 01/13/19 98.3 106 16 181/128 Room Air 22:37 (145) Physical Exam HEENT: WNL Heart: Rhythm Normal Lungs: Clear, Equal Abdomen: WNL Extremities: Normal Reflexes: Normal Cervical Dilatation: other Effacement: Other Station: Other Membranes: Intact Amniotic Fluid: Unevaluable Heart Rate: 140's Accelerations: Accelerations Present Decelerations: No Decelerations Varibility: Moderate Contractions on Admission: None Last 72 hours Lab Results CBC & BMP 01/13/19 22:47 Liver Function Test 01/13/19 22:47 Alanine Aminotransferase (ALT/SGPT) 10 L Albumin 3.5 Alkaline Phosphatase 184 H Aspartate Amino Transf (AST/SGOT) 22 Direct Bilirubin 0.00 Total Protein 7.1 OB Assessment/Plan Reason for admission: other (headache and vomiting , backache) Other Assessment: IUP 34w5d chronic hypertension /preeclampsia Plan: Other (labetalol, magnesium sulfate, BMZ 24hr urine collection for prot ein and Cr) LANDON SNYDER MD Jan 14, 2019 06:02
[2019-01-14] MEDS: LACTATED RINGER'S 1,000 ML IV SCH (09:33)
[2019-01-14] MEDS: MAGNESIUM SULFATE 20 GM/500 ML 500 ML IV SCH ×2 (09:44→22:06)
[2019-01-14] MEDS ORDERED: OXYTOCIN 30 UNITS/LR 500 ML IV PRN ×2 (12:00→22:00)
[2019-01-14] MEDS ORDERED: MISOPROSTOL 200 MCG TAB PR PRN ×2 (12:00→22:00)
[2019-01-14] MEDS ORDERED: CEFAZOLIN 2 GM/50 ML (PMX) 50 ML IVPB SCH (12:00)
[2019-01-14] MEDS ORDERED: METHYLERGONOVINE 0.2 MG INJ IM PRN (12:00)
[2019-01-14] MEDS ORDERED: CARBOPROST 250 MCG INJ IM PRN ×2 (12:00→22:00)
[2019-01-14] MEDS: BETAMET NA PHOS/AC(6 MG/ML) 2 ML INJ SYG IM SCH (12:18)
--- NOTE | 2019-01-14 12:25 | QN ---
Documentation Comment recommened by Dr. Newman to delivery for preeclampsia with severe features. paient currently stable on mgso. keep patient npo and schedule for CD r/b/a explained MERYL ZIMMERMAN MD Jan 14, 2019 12:25
--- NOTE | 2019-01-14 12:46 | CONS ---
Assessment/Plan Assessment/Plan Hospital Course (Demo Recall) I have spoken to the mother regarding prematurity, risk for respiratory distress syndrome, infection, diagnosis of gastroschisis requiring surgery and immediate transfer to [facility], feeding problems, and risk for long-term neurodevelopmental problems in view of prematurity. Mom seems to be very familiar with problems related to prematurity and gastroschisis as she had consult at [facility] to discuss the management of gastroschisis with complications and follow-up. Mom seems to understand that risks with gastroschisis and prematurity and had appropriate questions that were answered. I took about 30 minutes to review the mother's chart , discuss her, condition with the primary manager mobility , coordinating the care with ancillary services and dictating the consult note. Thank you very much for allowing me to take part in the care of this patient, will follow the mom and the baby as needed and transferred to [facility].. [facility] team is aware of delivery today and transfer This consult is done and dictated by Dr. Gomez . Consultation Date/Type/Reason Admit Date/Time Jan 14, 2019 at 00:20 Type of Consult consult requested by discharge him for prematurity at 34 and 6/7 weeks and diagnosis of gastroschisis. Baby needs to be transferred to [facility] for surgery for gastroschisis after . Reason for Consultation Mom is 23-year-old, 1, para 0 admitted at 34 and 6/7 weeks and started on magnesium sulfate and labetalol for PIH and preeclamptic toxemia and has history of gastroschisis on ultrasound. Denies history of any significant problems during . Mom says she has consulted the children's team and they have discussed the surgery and follow-up with feeding problems with gastroschisis . She is given 1 dose of betamethasone with the second 1 to be given 12 hours after the first one and she will have section done today to deliver the baby. Date/Time of Note DATE: 01/14/19 TIME: 12:37 Past Medical History Home Meds Active Scripts Labetalol Hcl* (Labetalol Hcl*) 200 Mg Tablet, 200 MG PO BID for 30 Days, #60 TAB 1 Refill Prov:LATESHA GRAHAM MD 01/19/19 Nifedipine (Procardia Xl) 30 Mg Tab.er.24, 30 MG PO BID for 30 Days, #60 TAB 1 Refill Prov:LATESHA GRAHAM MD 01/19/19 Discontinued Scripts Acetaminophen* (Tylophen*) 500 Mg Capsule, 1 CAP PO Q6H PRN for PAIN AND OR ELEVATED TEMP, #20 CAP Prov:ROSALINO SUAREZ PA-C 07/25/18 Cephalexin* (Keflex*) 500 Mg Capsule, 500 MG PO BID for 7 Days, CAP Prov:LUAN LINCOLN PA-C 07/03/18 Metoclopramide* (Reglan*) 10 Mg Tablet, 10 MG PO Q6 PRN for NAUSEA AND/OR VOMITING, #30 TAB Prov:LUAN LINCOLN PA-C 07/03/18 Ibuprofen* (Motrin*) 600 Mg Tab, 600 MG PO Q8 for 5 Days, #15 TAB Prov:CONRAD MORE MD 05/11/18 Lorazepam* (Ativan*) 0.5 Mg Tablet, 0.5 MG PO Q12 PRN for ANXIETY, #10 TAB Prov:CONRAD MORE MD 01/24/18 Ibuprofen* (Ibuprofen*) 400 Mg Tablet, 400 MG PO TID for 5 Days, #15 TAB Prov:CONRAD MORE MD 11/30/17 Hydrocodone/Acetaminophen ([place] 5-325 Tablet) 1 Each Tablet, 1 EACH PO TID PRN for PAIN LEVEL 6-10, #12 TAB Prov:CONRAD MORE MD 11/30/17 Ibuprofen* (Motrin*) 600 Mg Tab, 600 MG PO TID PRN for PAIN AND OR ELEVATED TEMP, #15 TAB Prov:CONRAD MORE MD 10/21/17 Promethazine HCl/Codeine (Prometh-Codein 6.25-10 mg/5 ml) 5 Ml Syrup, 5 ML PO QHS for COUGH, #120 ML Prov:CONRAD MORE MD 10/21/17 Azithromycin* (Zithromax*) 250 Mg Tablet, 250 MG PO .EUGENE DIRECTED, #6 TAB TAKE 500 MG (2 TABS) THE FIRST DAY THEN 250 MG (1 TAB) DAYS 2-5 Prov:CONRAD MORE MD 10/21/17 Hydrocodone/Acetaminophen ([place] 5-325 Tablet) 1 Each Tablet, 1 TAB PO Q6H PRN for PAIN, #7 TAB Prov:ROSALINO SUAREZ PA-C 05/17/17 Ibuprofen* (Motrin*) 600 Mg Tab, 600 MG PO Q6, #20 TAB Prov:ROSALINO SUAREZ PA-C 05/17/17 Ibuprofen* (Motrin*) 600 Mg Tab, 600 MG PO Q6H PRN for PAIN AND OR ELEVATED TEMP, #30 TAB Prov:CATRACHITO SOLIZ NP 11/24/16 Cephalexin* (Keflex*) 500 Mg Capsule, 500 MG PO QID for 7 Days, CAP Prov:BRAULIO CHEUNG PA-C 11/11/16 Ibuprofen* (Motrin*) 600 Mg Tab, 600 MG PO Q6, #30 TAB Prov:BRAULIO CHEUNG PA-C 11/11/16 Hydrocodone/Acetaminophen ([place] 10-325 Tablet) 1 Each Tablet, 1 TAB PO Q6H PRN for PAIN, #7 TAB Prov:BRAULIO CHEUNG PA-C 11/11/16 Ondansetron (Ondansetron Odt) 4 Mg Tab.rapdis, 4 MG PO Q6H PRN for NAUSEA AND/OR VOMITING, #10 TAB Prov:BRAULIO CHEUNG PA-C 11/11/16 Azithromycin* (Zithromax*) 250 Mg Tablet, 250 MG PO .[place] DIRECTED, #6 TAB TAKE 500 MG (2 TABS) THE FIRST DAY THEN 250 MG (1 TAB) DAYS 2-5 Prov:AN DAMON PA-C 02/09/16 Prednisone* (Prednisone*) 20 Mg Tab, 40 MG PO DAILY for 4 Days, TAB Prov:AN DAMON PA-C 02/09/16 Medications Current Medications Magnesium Sulfate 500 ml @ 50 mls/hr Q10H IV Last administered on 01/14/19at 09:44; Admin Dose 50 MLS/HR; Start 01/13/19 at 22:32 Acetaminophen (Tylenol Tab) 650 mg Q4H PRN PO .PAIN OR TEMP; Start 01/13/19 at 23:00 Lactated Ringer's 1,000 ml @ 75 mls/hr [id number] IV Last administered on 01/14/19at 09:33; Admin Dose 75 MLS/HR; Start 01/13/19 at 23:00 Ondansetron HCl (Zofran Inj) 4 mg Q6H PRN IV NAUSEA AND/OR VOMITING Last administered on 01/13/19at 23:56; Admin Dose 4 MG; Start 01/14/19 at 00:00 Labetalol HCl (Normodyne) 100 mg BID PO Last administered on 01/14/19at 09:29; Admin Dose 100 MG; Start 01/14/19 at 00:30 Cefazolin Sodium/ Dextrose 50 ml @ 100 mls/hr ONCE IVPB ; Start 01/14/19 at 12:00; Status UNV Oxytocin/Lactated Ringer's 500 ml @ 0 mls/hr ONCE PRN IV .VAGINAL BLEEDING; Start 01/14/19 at 12:00; Status UNV Methylergonovine Maleate (Methergine) 0.2 mg ONCE PRN IM .VAGINAL BLEEDING; Start 01/14/19 at 12:00; Status UNV Carboprost Tromethamine (Hemabate) 250 mcg ONCE PRN IM .VAGINAL BLEEDING; Start 01/14/19 at 12:00; Status UNV Misoprostol (Cytotec) 1,000 mcg ONCE PRN FL .VAGINAL BLEEDING; Start 01/14/19 at 12:00; Status UNV Allergies: Coded Allergies: No Known Allergy (Unverified , 01/13/19) Social History Smoking Status: Never smoker Exam/Review of Systems Exam Vitals Vital Signs Date Temp Pulse Resp B/P (MAP) Pulse Ox O2 O2 Flow FiO2 Time Delivery Rate 01/13/19 98.3 106 16 181/128 Room Air 22:37 (145) Intake and Output 01/13/19 01/13/19 01/14/19 1515:00 23:00 07:00 IntakeIntake Total 1050 ml BalanceBalance 1050 ml Results Result Diagram: 01/13/19224601/13/197 Results 24hrs Laboratory Tests Test 01/13/19 22:47 White Blood Count 12.5 #H Red Blood Count 4.29 Hemoglobin 10.9 L Hematocrit 34.1 L Mean Corpuscular Volume 79.5 L Mean Corpuscular Hemoglobin 25.4 L Mean Corpuscular Hemoglobin Concent 32.0 Red Cell Distribution Width 13.6 Platelet Count 303 # Mean Platelet Volume 10.2 Immature Granulocytes % 0.600 H Neutrophils % 80.0 H Lymphocytes % 15.2 Monocytes % 3.8 Eosinophils % 0.1 Basophils % 0.3 Nucleated Red Blood Cells % 0.0 Immature Granulocytes # 0.080 H Neutrophils # 10.0 H Lymphocytes # 1.9 Monocytes # 0.5 Eosinophils # 0.0 Basophils # 0.0 Nucleated Red Blood Cells # 0.0 Prothrombin Time 13.2 Prothrombin Time Ratio 1.0 INR International Normalized Ratio 0.99 Activated Partial Thromboplast Time 31.5 Fibrinogen 697.0 H Urine Color YELLOW Urine Clarity SLIGHTLY CLOUDY A Urine pH 5.0 Urine Specific [place] 1.025 Urine Ketones NEGATIVE Urine Nitrite NEGATIVE Urine Bilirubin NEGATIVE Urine Urobilinogen 1+ H Urine Leukocyte Esterase NEGATIVE Urine Microscopic RBC 1 Urine Microscopic WBC 4 Urine Squamous Epithelial Cells FEW Urine Mucus MODERATE Urine Hemoglobin NEGATIVE Urine Glucose NEGATIVE Urine Total Protein 2+ H Sodium Level 137 Potassium Level 3.8 Chloride Level 108 Carbon Dioxide Level 21 Anion Gap 8 Blood Urea Nitrogen 8 Creatinine 0.49 Est Glomerular Filtrat Rate mL/min > 60 Glucose Level 111 Uric Acid 6.5 Calcium Level 9.2 Total Bilirubin 0.3 Direct Bilirubin 0.00 Indirect Bilirubin 0.3 Aspartate Amino Transf (AST/SGOT) 22 Alanine Aminotransferase (ALT/SGPT) 10 L Alkaline Phosphatase 184 H Total Protein 7.1 Albumin 3.5 Globulin 3.60 H Albumin/Globulin Ratio 0.97 Urine Opiates Screen Negative Urine Barbiturates Negative Urine Amphetamines Screen Negative Urine Benzodiazepines Screen Negative Urine Cocaine Screen Negative Urine Cannabinoids Negative Medications Medication Current Medications Magnesium Sulfate 500 ml @ 50 mls/hr Q10H IV Last administered on 01/14/19at 09:44; Admin Dose 50 MLS/HR; Start 01/13/19 at 22:32 Acetaminophen (Tylenol Tab) 650 mg Q4H PRN PO .PAIN OR TEMP; Start 01/13/19 at 23:00 Lactated Ringer's 1,000 ml @ 75 mls/hr [id number] IV Last administered on 01/14/19at 09:33; Admin Dose 75 MLS/HR; Start 01/13/19 at 23:00 Ondansetron HCl (Zofran Inj) 4 mg Q6H PRN IV NAUSEA AND/OR VOMITING Last ad ministered on 01/13/19at 23:56; Admin Dose 4 MG; Start 01/14/19 at 00:00 Labetalol HCl (Normodyne) 100 mg BID PO Last administered on 01/14/19at 09:29; Admin Dose 100 MG; Start 01/14/19 at 00:30 Cefazolin Sodium/ Dextrose 50 ml @ 100 mls/hr ONCE IVPB ; Start 01/14/19 at 12:00; Status UNV Oxytocin/Lactated Ringer's 500 ml @ 0 mls/hr ONCE PRN IV .VAGINAL BLEEDING; Start 01/14/19 at 12:00; Status UNV Methylergonovine Maleate (Methergine) 0.2 mg ONCE PRN IM .VAGINAL BLEEDING; Start 01/14/19 at 12:00; Status UNV Carboprost Tromethamine (Hemabate) 250 mcg ONCE PRN IM .VAGINAL BLEEDING; Start 01/14/19 at 12:00; Status UNV Misoprostol (Cytotec) 1,000 mcg ONCE PRN FL .VAGINAL BLEEDING; Start 01/14/19 at 12:00; Status UNV CHRISSIE RODRIGUEZ NP Jan 14, 2019 12:46
[2019-01-14] MEDS ORDERED: FAMOTIDINE 20 MG INJ IV ONE (15:30)
[2019-01-14] MEDS ORDERED: METOCLOPRAMIDE 10 MG INJ IV ONE (15:30)
--- NOTE | 2019-01-14 18:17 | PREAC ---
Date/Time of Note Date/Time of Note DATE: 01/14/19 TIME: 18:15 Anesthesia Eval and Record Evaluation Time Pre-Procedure Interview DATE: 01/14/19 TIME: 18:15 Age 23 Sex female NPO: 8 hrs Preoperative diagnosis pre-term , PIH Planned procedure Primary Csection Past Medical History Past Medical History: Includes : PIH, Other (34weeks) Surgery & Anesthesia Issues Significant blood loss Meds Anticoagulation: No Beta Paola within 24 hr: No Reason Beta Paola not given: Pt. not on B-Paola Discontinued Scripts Acetaminophen* (Tylophen*) 500 Mg Capsule, 1 CAP PO Q6H PRN for PAIN AND OR ELEVATED TEMP, #20 CAP Prov:ROSALINO SUAREZC 07/25/18 Cephalexin* (Keflex*) 500 Mg Capsule, 500 MG PO BID for 7 Days, CAP Prov:LUAN LINCOLN PA-C 07/03/18 Metoclopramide* (Reglan*) 10 Mg Tablet, 10 MG PO Q6 PRN for NAUSEA AND/OR VOMITING, #30 TAB Prov:LUAN LINCOLN PA-C 07/03/18 Ibuprofen* (Motrin*) 600 Mg Tab, 600 MG PO Q8 for 5 Days, #15 TAB Prov:CONRAD MORE MD 05/11/18 Lorazepam* (Ativan*) 0.5 Mg Tablet, 0.5 MG PO Q12 PRN for ANXIETY, #10 TAB Prov:CONRAD MORE MD 01/24/18 Ibuprofen* (Ibuprofen*) 400 Mg Tablet, 400 MG PO TID for 5 Days, #15 TAB Prov:CONRAD MORE MD 11/30/17 Hydrocodone/Acetaminophen ([place] 5-325 Tablet) 1 Each Tablet, 1 EACH PO TID PRN for PAIN LEVEL 6-10, #12 TAB Prov:CONRAD MORE MD 11/30/17 Ibuprofen* (Motrin*) 600 Mg Tab, 600 MG PO TID PRN for PAIN AND OR ELEVATED TEMP, #15 TAB Prov:CONRAD MORE MD 10/21/17 Promethazine HCl/Codeine (Prometh-Codein 6.25-10 mg/5 ml) 5 Ml Syrup, 5 ML PO QHS for COUGH, #120 ML Prov:CONRAD MORE MD 10/21/17 Azithromycin* (Zithromax*) 250 Mg Tablet, 250 MG PO .ZPAVIOLET DIRECTED, #6 TAB TAKE 500 MG (2 TABS) THE FIRST DAY THEN 250 MG (1 TAB) DAYS 2-5 Prov:CONRAD MORE MD 10/21/17 Hydrocodone/Acetaminophen ([place] 5-325 Tablet) 1 Each Tablet, 1 TAB PO Q6H PRN for PAIN, #7 TAB Prov:ROSALINO SUAREZC 05/17/17 Ibuprofen* (Motrin*) 600 Mg Tab, 600 MG PO Q6, #20 TAB Prov:ROSALINO SUAREZC 05/17/17 Ibuprofen* (Motrin*) 600 Mg Tab, 600 MG PO Q6H PRN for PAIN AND OR ELEVATED TEMP, #30 TAB Prov:CATRACHITO SOLIZ NP 11/24/16 Cephalexin* (Keflex*) 500 Mg Capsule, 500 MG PO QID for 7 Days, CAP Prov:BRAULIO CHEUNGC 11/11/16 Ibuprofen* (Motrin*) 600 Mg Tab, 600 MG PO Q6, #30 TAB Prov:BRAULIO CHEUNGC 11/11/16 Hydrocodone/Acetaminophen ([place] 10-325 Tablet) 1 Each Tablet, 1 TAB PO Q6H PRN for PAIN, #7 TAB Prov:BRAULIO CHEUNGC 11/11/16 Ondansetron (Ondansetron Odt) 4 Mg Tab.rapdis, 4 MG PO Q6H PRN for NAUSEA AND/OR VOMITING, #10 TAB Prov:BRAULIO CHEUNGC 11/11/16 Azithromycin* (Zithromax*) 250 Mg Tablet, 250 MG PO .ZPAVIOLET DIRECTED, #6 TAB TAKE 500 MG (2 TABS) THE FIRST DAY THEN 250 MG (1 TAB) DAYS 2-5 Prov:AN DAMON PA-C 02/09/16 Prednisone* (Prednisone*) 20 Mg Tab, 40 MG PO DAILY for 4 Days, TAB Prov:AN DAMON PA-C 02/09/16 Current Medications Magnesium Sulfate 500 ml @ 50 mls/hr Q10H IV Last administered on 01/14/19at 09:44; Admin Dose 50 MLS/HR; Start 01/13/19 at 22:32 Acetaminophen (Tylenol Tab) 650 mg Q4H PRN PO .PAIN OR TEMP; Start 01/13/19 at 23:00 Lactated Ringer's 1,000 ml @ 75 mls/hr [id number] IV Last administered on 01/14/19at 09:33; Admin Dose 75 MLS/HR; Start 01/13/19 at 23:00 Ondansetron HCl (Zofran Inj) 4 mg Q6H PRN IV NAUSEA AND/OR VOMITING Last administered on 01/13/19at 23:56; Admin Dose 4 MG; Start 01/14/19 at 00:00 Labetalol HCl (Normodyne) 100 mg BID PO Last administered on 01/14/19at 09:29; Admin Dose 100 MG; Start 01/14/19 at 00:30 Cefazolin Sodium/ Dextrose 50 ml @ 100 mls/hr ONCE IVPB ; Start 01/14/19 at 12:00 Oxytocin/Lactated Ringer's 500 ml @ 0 mls/hr ONCE PRN IV .VAGINAL BLEEDING; Start 01/14/19 at 12:00 Methylergonovine Maleate (Methergine) 0.2 mg ONCE PRN IM .VAGINAL BLEEDING; Start 01/14/19 at 12:00 Carboprost Tromethamine (Hemabate) 250 mcg ONCE PRN IM .VAGINAL BLEEDING; Start 01/14/19 at 12:00 Misoprostol (Cytotec) 1,000 mcg ONCE PRN OR .VAGINAL BLEEDING; Start 01/14/19 at 12:00 Meds reviewed: Yes Allergies Coded Allergies: No Known Allergy (Unverified , 01/13/19) Allergies Reviewed: Yes Labs/Studies Labs Reviewed: Reviewed by anesthesiologist Result Diagram: 01/14/19 1324 01/13/19 2247 Laboratory Tests 01/13/19 22:47 01/14/19 13:24 Blood Bank Test 01/13/19 22:47 Antibody Screen NEGATIVE Blood Type O NEGATIVE Rh Immune Globulin Candidate NO test: Positive Pre-procedure Exam Last vitals Vital Signs Date Temp Pulse Resp B/P (MAP) Pulse Ox O2 O2 Flow FiO2 Time Delivery Rate 01/13/19 98.3 106 16 181/128 Room Air 22:37 (145) Airway: Adequate mouth opening, Adequate thyromental dist Mallampati: Mallampati III Teeth: Normal Lung: Normal Heart: Normal ASA Physical Status ASA physical status: 3 Emergency: E Planned Anesthetic Neuraxial: Spinal Planned Pain Management Sub-arachniod narcotics, Parenteral pain med, Other neuraxial med Pre-operative Attestations Prior to commencing anesthesia and surgery, the patient was re-evaluated, there was verification of: *The patient's identity *The results of appropriate recent lab work and preoperative vital signs *The above evaluation not changing prior to induction *Anesthetic plan, risk benefits, alternative and complications discussed with patient/family; questions answered; patient/family understands, accepts and wishes to proceed. SIMRAN HUGO MD Jan 14, 2019 18:17
[2019-01-14] MEDS ORDERED: morphine SULFATE/PF (10 MG/10 ML) INJ ONE (18:20)
[2019-01-14] MEDS ORDERED: OXYTOCIN 10 UNIT INJ ONE (18:20)
--- NOTE | 2019-01-14 18:23 | HPN ---
Date/Time of Note Date/Time of Note DATE: 01/14/19 TIME: 18:19 Interval H&P Admission Note Pt. seen H&P reviewed: Systems changes noted below 23 yo iup at 34 wks 6 days ga, preeclampsia with severe features, gastroschisis of fetus, low cem, Rh negative, limited care MERYL ZIMMERMAN MD Jan 14, 2019 18:23
[2019-01-14] MEDS ORDERED: LABETALOL HCL 20MG INJ IV PRN (18:30)
[2019-01-14] MEDS ORDERED: KETOROLAC 30 MG INJ IV PRN ×2 (18:30)
[2019-01-14] MEDS ORDERED: ONDANSETRON 4 MG INJ IV PRN ×2 (18:30)
[2019-01-14] MEDS ORDERED: MIDAZOLAM 1 MG/ML 2 ML INJ IV PRN (18:30)
[2019-01-14] MEDS ORDERED: LORAZEPAM 2 MG INJ IV PRN (18:30)
[2019-01-14] MEDS ORDERED: HYDROmorphONE 0.5 MG/0.5 ML SYG IV PRN ×2 (18:30)
[2019-01-14] MEDS ORDERED: ZOLPIDEM 5 MG TAB PO PRN (18:30)
[2019-01-14] MEDS ORDERED: FENTAnyl 50 MCG/ML VIAL IV PRN ×2 (18:30)
[2019-01-14] MEDS ORDERED: NALOXONE (0.4 MG/ML) INJ IV PRN (18:30)
[2019-01-14] MEDS ORDERED: DIPHENHYDRAMINE 50 MG INJ IV PRN ×2 (18:30)
[2019-01-14] MEDS ORDERED: HYDROmorphONE 1 MG/5 ML IV SYRINGE IV PRN ×3 (18:30)
[2019-01-14] MEDS ORDERED: hydrALAzine 20 MG INJ IV PRN (18:30)
[2019-01-14] MEDS: ONDANSETRON 4 MG INJ IV PRN (19:20)
[2019-01-14] MEDS ORDERED: OXYTOCIN 30 UNITS/LR 500 ML IV SCH (21:38)
--- NOTE | 2019-01-14 21:38 | OPPN ---
Date/Time of Note Date/Time of Note DATE: 01/14/19 TIME: 21:35 Operative Report Planned Procedure Procedure date Jan 14, 2019 Procedure(s) primary low transverse CD Performed by see signature line Antique Furniture Reproducer: ANAND BENNETT MD 2nd Antique Furniture Reproducer none Anesthesiologist: SIMRAN HUGO MD Pre-procedure diagnosis 23 yo iup at 34 wks 6 days ga, preeclampsia with severe features, gastroschisis of fetus, low cem, Rh negative, limited care [id number] Anesthesia Type: Ldesm3t spinal Post-Procedure Post-procedure diagnosis 23 yo iup at 34 wks 6 days ga, preeclampsia with severe features, gastroschisis of fetus, low cem, Rh negative, limited care malpresentation Findings A viable female 8/9, weight 2,345 grams, britt breech presentation, fetus with visible gastroschisis. Normal uterus tubes and ovaries Estimated Blood Loss: 500 - 600 mls (500) Specimen(s) none Grafts/Implant(s) none Complication(s) none MERYL ZIMMERMAN MD Jan 14, 2019 21:38
[2019-01-14] MEDS ORDERED: OXYCODONE/ACETAMINOPHEN (5/325) TAB PO PRN (22:00)
[2019-01-14] MEDS: CEFAZOLIN 2 GM/50 ML (PMX) 50 ML IVPB SCH (22:00)
[2019-01-14] MEDS ORDERED: CA GLUCONATE (GM) 10% 10ML INJ IV PRN (22:00)
[2019-01-14] MEDS ORDERED: LANOLIN HPA 1 PKT TOP PRN (22:00)
[2019-01-14] MEDS ORDERED: NACL 0.9% 3 ML SYG IV SCH ×2 (22:00)
[2019-01-15] VITALS (16 sets, daily range): BP systolic 101–154; BP diastolic 55–90; PULSE 72–92; RESP 16–20
[2019-01-15] MEDS: CEFAZOLIN 2 GM/50 ML (PMX) 50 ML IVPB SCH ×2 (05:57→14:01)
[2019-01-15] MEDS: IBUPROFEN 600 MG TAB PO SCH ×4 (06:00→18:00)
[2019-01-15] MEDS: MAGNESIUM SULFATE 20 GM/500 ML 500 ML IV SCH ×2 (07:29→17:21)
[2019-01-15] MEDS: LABETALOL 100 MG TAB PO SCH ×2 (09:15→21:33)
[2019-01-15] MEDS: LACTATED RINGER'S 1,000 ML IV SCH ×2 (09:17→15:00)
--- NOTE | 2019-01-15 13:38 | OPR ---
DATE OF OPERATION: 01/14/2019 PRIMARY DIAGNOSES: 1. A 23-year-old 1, para 0, intrauterine at 34 weeks and 6 days' gestational age. 2. Preeclampsia with severe features. 3. Gastroschisis of the fetus. 4. Low amniotic fluid index, Rh negative. 5. Limited care. 6. malpresentation. POSTOPERATIVE DIAGNOSES: 1. A 23-year-old 1, para 0, intrauterine at 34 weeks and 6 days' gestational age. 2. Preeclampsia with severe features. 3. Gastroschisis of the fetus. 4. Low amniotic fluid index, Rh negative. 5. Limited care. 6. malpresentation. PROCEDURE: Primary low transverse delivery. SURGEON: Schuyler Ronquillo MD VICTIM WITNESS ADMINISTRATOR: David Abreu MD ANESTHESIA: Spinal. COMPLICATIONS: None. ESTIMATED BLOOD LOSS: 500 mL. FINDINGS: A viable female, 8 and 9 respectively at 1 and 5 minutes, weight 2345 grams, in flash k breech presentation, fetus with visible gastroschisis, normal uterus, tubes and ovaries. DESCRIPTION OF PROCEDURE: After explaining the risks, benefits and alternatives with the patient and consent was signed in chart, the patient was taken to the operating room where spinal anesthesia was found to be adequate. She was then prepared and draped in normal sterile fashion in a dorsal supine position with a leftward tilt. A Pfannenstiel skin incision was then made with a scalpel and maria m d to the underlying of the fascia. The fascia was incised in midline and incision was extended later ally with Zuniga scissors. The superior aspect of the fascial incision was grasped with curved clamps and elevated and the underlying rectus muscles were dissected off bluntly. Attention was then turned to the inferior aspect incision which in similar fashion was grasped, tented up with curved clamps a nd the rectus muscles were dissected off bluntly. The rectus muscle was in midline. Perit oneum was identified, tented up and sharply with Metzenbaum scissors. The peritoneal incision was ex tended superiorly and inferiorly with visualization of bladder. The bladder blade was then inserted and the vesicouterine peritoneum was identified, grasped with pickups and entered sharply with Metzen makayla scissors. This incision was extended laterally and bladder flap was created digitally. The olman dder blade was then reinserted and the lower segment was incised in transverse fashion with a scalpel . The uterine incision was extended laterally. The bladder blade was removed and the infant's butto ck was delivered to the level of the scapula. The right arm was flipped across the chest and deliver ed. The left arm was flipped across the chest and delivered. The head was delivered atraumatically. The nose and mouth were suctioned and delayed cord was clamped and cut. The infant was handed off to awaiting NICU team. The placenta was then removed. The uterus was exteriorized and cleared of al l clots and debris. The uterine incision was repaired with 1-0 chromic in a running locked fashion. A second layer of same suture was used for imbrication obtaining excellent hemostasis. The uterus w as returned to the abdomen. The gutters were cleared of all clots, and the peritoneum and rectus abd ominis muscles were reapproximated with 3-0 Vicryl. The fascia was reapproximated with 0 Vicryl in a running fashion. The subcutaneous tissue was reapproximated with 2-0 plain gut in a running fashion . The skin was closed with absorbable richa. The patient tolerated procedure well. Sponge, lap a nd needle counts were correct. The patient was taken to the recovery room in stable condition. The patient will be continued on magnesium sulfate for seizure prophylaxis for at least 24 hours postpart um. Dictated By: SCHUYLER JEFFERSON/LEANDRA Conf#: [id number] DID#: [id number] CC: IRIS SNYDER MD;*End*
--- NOTE | 2019-01-15 19:48 | QN ---
Documentation Comment progress note pod 1 patient seen and evaluated no complaints vs stable afebrile ab dressing clean/dry no distention nt extremity no edema no calf tenderness a/ sp cd pod 1 currently on mg p/ discontinue mg 24 hrs pp strict preeclamptic precaution encourage ambulation iron supplement MERYL ZIMMERMAN MD Jan 15, 2019 19:48
[2019-01-15] MEDS: FERROUS SULFATE (EC) 325 MG TAB PO SCH (21:32)
[2019-01-15] MEDS ORDERED: LACTATED RINGER'S 1,000 ML IV SCH (23:00)
[2019-01-15] MEDS ORDERED: CEFAZOLIN 2 GM/50 ML (PMX) 50 ML IVPB SCH (23:45)
[2019-01-16] MEDS: OXYCODONE/ACETAMINOPHEN (5/325) TAB PO PRN ×3 (00:35→18:39)
[2019-01-16 04:00] VITALS: BP 166/92; PULSE 70; RESP 18
[2019-01-16] MEDS: IBUPROFEN 600 MG TAB PO SCH ×5 (05:40→23:37)
[2019-01-16 06:30] VITALS: BP 131/84; RESP 18
[2019-01-16 08:00] VITALS: BP 103/57; PULSE 72; RESP 18
--- NOTE | 2019-01-16 08:51 | QN ---
Documentation Comment progress note pod 1 patient seen and evaluated no complaints vs stable afebrile ab dressing clean/dry no distention nt extremity no edema no calf tenderness a/ sp cd pod 2 stable afebrile p/ strict preeclamptic precaution encourage ambulation remove dressing today MERYL ZIMMERMAN MD Jan 16, 2019 08:51
[2019-01-16] MEDS: LABETALOL 100 MG TAB PO SCH ×2 (09:17→20:55)
[2019-01-16] MEDS: FERROUS SULFATE (EC) 325 MG TAB PO SCH ×2 (09:17→20:54)
[2019-01-16 12:50] VITALS: BP 138/95; PULSE 72; RESP 18
[2019-01-16 16:00] VITALS: BP_SYST 138; BP_SYST 144; BP_DIAS 87; BP_DIAS 95; PULSE 70; RESP 18
[2019-01-16 19:00] VITALS: BP 150/80; PULSE 62; RESP 18
[2019-01-17] VITALS (14 sets, daily range): BP systolic 134–190; BP diastolic 75–104; PULSE 63–85; RESP 16–20
[2019-01-17] MEDS: IBUPROFEN 600 MG TAB PO SCH ×3 (05:44→17:58)
--- NOTE | 2019-01-17 08:16 | PD.PPDC ---
BRUSH WORKER Discharge Instruction Condition [id number] Patient Condition: Injfz4y Good Diet [id number] Diet: Lllga5s Resume Regular Diet Activity/Restrictions [id number] Activity: Oqpaf7z Normal Activity May Shower [id number] Restrictions: Antdg3d No Exercising No Lifting No Driving No Sexual Activity Nothing in the Vagina No [place] No Tampons, douche Follow-up Follow-up with Physician: 1, Week/Weeks Return to clinic for [id number] UTILITY GELATIN MAKER Instructions: Evgen0a Fever greater than 101 Chills Worsening abdominal pain Excessive Vaginal Bleeding More than 2 pads per hour Unable to tolerate diet Shcdh1Vy OB Instructions: Qmcrk5u Breast Tenderness Depression Blurried Vision Headache Umhsq5Lo Surgical Instructions: Pdyqp3i Incisional Drainage Incisional Redness MERYL ZIMMERMAN MD Jan 17, 2019 08:16
[2019-01-17] MEDS: FERROUS SULFATE (EC) 325 MG TAB PO SCH ×2 (09:09→21:06)
[2019-01-17] MEDS: LABETALOL 100 MG TAB PO SCH (09:10)
--- NOTE | 2019-01-17 09:31 | DS ---
DATE OF ADMISSION: 01/14/2019 DATE OF DISCHARGE: 01/17/2019 PRIMARY DIAGNOSIS: A 23-year-old 1, para 0, intrauterine at 34 weeks and 6 days ge stational age, preeclampsia with severe features, gastric the fetus low amniotic fluid index, R h negative. Limited care, malpresentation. PROCEDURE: Primary low transverse delivery. CONDITION ON DISCHARGE: Stable. ACTIVITY: None per vagina, no lifting x6 weeks. DIET: Regular. MEDICATIONS ON DISCHARGE: 1. Motrin. 2. Iron. 3. Colace. DISCHARGE SUMMARY: Ms. Freda Hinkle underwent a primary low transverse delivery on 019. She had a viable female, 8 and 9 respectively at 1 and 5 minutes, weight 2345 grams, in f rank breech presentation. Fetus with visible gastroschisis. The patient had an uneventful postop da y 1, 2, and 3. Her incision is clean, dry, intact. She is ambulating, tolerating diet, positive fla tulence, positive bowel movement. She denies any headache, nausea, vomiting, shortness of breath, vi sual changes or epigastric pain. She will be discharged today with strict preeclamptic precautions. She will follow up in clinic in 1 week for /post OP care. The patient advised to do home blood pressure monitoring. Dictated By: MERYL JEFFERSON/LEANDRA Conf#: [id number] DID#: [id number] CC: MERYL ZIMMERMAN MD;*EndCC*
[2019-01-17] MEDS ORDERED: MAGNESIUM SULFATE 4 GM/100 ML 100 ML IVPB ONE (14:30)
[2019-01-17] MEDS: LACTATED RINGER'S 1,000 ML IV SCH (15:08)
[2019-01-17] MEDS: MAGNESIUM SULFATE 20 GM/500 ML 500 ML IV SCH (15:40)
[2019-01-17] MEDS: LABETALOL 200 MG TAB PO SCH (21:07)
[2019-01-18] VITALS (22 sets, daily range): BP systolic 127–178; BP diastolic 66–100; PULSE 65–83; RESP 16–20
[2019-01-18] MEDS: IBUPROFEN 600 MG TAB PO SCH ×5 (00:03→23:47)
[2019-01-18] MEDS: MAGNESIUM SULFATE 20 GM/500 ML 500 ML IV SCH ×2 (01:26→11:09)
[2019-01-18] MEDS: LACTATED RINGER'S 1,000 ML IV SCH ×2 (03:33→17:02)
[2019-01-18] MEDS: FERROUS SULFATE (EC) 325 MG TAB PO SCH ×2 (09:27→21:21)
[2019-01-18] MEDS: LABETALOL 200 MG TAB PO SCH ×2 (09:27→21:22)
--- NOTE | 2019-01-18 18:17 | QN ---
Documentation Comment c/o very drowsy but no headache BP 150-160's/80-90 with labetalol 200mg BID magnesium sulfate d/c 1500 today mg level 5.6 spoke to hospitalist regading care of HTN will be seen by hospitalist for her HTN care LANDON SNYDER MD Jan 18, 2019 18:17
[2019-01-18] MEDS ORDERED: hydrALAzine 20 MG INJ IV PRN (19:30)
--- NOTE | 2019-01-18 19:31 | CONS ---
Assessment/Plan Assessment/Plan Hospital Course (Demo Recall) 23 yo with PMH untreated HTN s/p delivery 01/14 has been experiencing uncontrolled blood pressure following delivery Assessment/Plan (Daily) 1. Uncontrolled hypertension - Continue on labetalol 200mg BID and recommend adding Nicardipine 30mg BID. Will adjust medications as need to reach goal of SBP <120 given patient has been symptomatic with elevate SBP. Will add hydralazine PRN as well and monitor frequency of use for SBP greater than 160 2. - care per OB team 3. Acute blood loss anemia - stable - no transfusions required 4. Disposition - Start on Nicardipine and titrate medication as needed for better BP control. Thank you for allowing me to participate in the care of your patient. Please call with any questions. Consultation Date/Type/Reason Admit Date/Time Jan 14, 2019 at 00:20 Date of Consultation: Jan 18, 2019 Type of Consult Internal medicine Reason for Consultation Hypertension Date/Time of Note DATE: 01/18/19 TIME: 19:17 Hx of Present Illness 23 yo F with PMH HTN underwent Csection on 01/14/19 has been experiencing uncontrolled blood pressure following delivery. Patient was noted to have poor care prior to delivery and was not treated for elevated blood pressure during . She was diagnosed with preeclampsia with severe features, requiring delivery at 34 week and 6 days. Internal medicine consultation was placed for blood pressure management. Patient has been experiencing persistent elevated SBP in the 150-160 after being started on labetalol. Patient admits to feeling fatigued and "woozy" when walking due to elevated BP levels. Discussed with patient BP can be high 3-6 days following and will need to follow up with PCP to be weaned off BP medications. Patient currently complains of discomfort at surgical incision site but denies any chest pain, shortness of indira ath, nausea, vomiting, dizziness at rest, urinary issues, constipation, or diarrhea. All 12 systems reviewed and pertinent positives as per HPI. All others negative. Constitutional: No chills Eyes: No discharge ENT: No congestion Respiratory: No cough, No shortness of breath, No sputum, No wheezing Cardiovascular: lightheadedness; No chest pain, No palpitations Gastrointestinal: No pain, No constipation, No diarrhea, No nausea, No vomiting Genitourinary: No discharge Musculoskeletal: No back pain Skin: other (irritation at surgical incision site); No bruising Neurologic: No confusion, No focal-weakness, No syncope Endocrine: no complaints Lymphatic: no complaints Psychological: nl mood/affect Immunologic: no complaints Past Medical History Medical History: hypertension Home Meds Discontinued Scripts Acetaminophen* (Tylophen*) 500 Mg Capsule, 1 CAP PO Q6H PRN for PAIN AND OR ELEVATED TEMP, #20 CAP Prov:ROSALINO SUAREZC 07/25/18 Cephalexin* (Keflex*) 500 Mg Capsule, 500 MG PO BID for 7 Days, CAP Prov:LUAN LINCOLNC 07/03/18 Metoclopramide* (Reglan*) 10 Mg Tablet, 10 MG PO Q6 PRN for NAUSEA AND/OR VOMITING, #30 TAB Prov:LUAN LINCOLN PA-C 07/03/18 Ibuprofen* (Motrin*) 600 Mg Tab, 600 MG PO Q8 for 5 Days, #15 TAB Prov:CONRAD MORE MD 05/11/18 Lorazepam* (Ativan*) 0.5 Mg Tablet, 0.5 MG PO Q12 PRN for ANXIETY, #10 TAB Prov:CONRAD MORE MD 01/24/18 Ibuprofen* (Ibuprofen*) 400 Mg Tablet, 400 MG PO TID for 5 Days, #15 TAB Prov:CONRAD MORE MD 11/30/17 Hydrocodone/Acetaminophen (Unity 5-325 Tablet) 1 Each Tablet, 1 EACH PO TID PRN for PAIN LEVEL 6-10, #12 TAB Prov:CONRAD MORE MD 11/30/17 Ibuprofen* (Motrin*) 600 Mg Tab, 600 MG PO TID PRN for PAIN AND OR ELEVATED TEM P, #15 TAB Prov:CONRAD MORE MD 10/21/17 Promethazine HCl/Codeine (Prometh-Codein 6.25-10 mg/5 ml) 5 Ml Syrup, 5 ML PO QHS for COUGH, #120 ML Prov:CONRAD MORE MD 10/21/17 Azithromycin* (Zithromax*) 250 Mg Tablet, 250 MG PO .EUGENE DIRECTED, #6 TAB TAKE 500 MG (2 TABS) THE FIRST DAY THEN 250 MG (1 TAB) DAYS 2-5 Prov:CONRAD MORE MD 10/21/17 Hydrocodone/Acetaminophen (Unity 5-325 Tablet) 1 Each Tablet, 1 TAB PO Q6H PRN for PAIN, #7 TAB Prov:ROSALINO SUAREZ PA-C 05/17/17 Ibuprofen* (Motrin*) 600 Mg Tab, 600 MG PO Q6, #20 TAB Prov:ROSALINO SUAREZ PA-C 05/17/17 Ibuprofen* (Motrin*) 600 Mg Tab, 600 MG PO Q6H PRN for PAIN AND OR ELEVATED TEMP, #30 TAB Prov:CATRACHITO SOLIZ NP 11/24/16 Cephalexin* (Keflex*) 500 Mg Capsule, 500 MG PO QID for 7 Days, CAP Prov:BRAULIO CHEUNG PA-C 11/11/16 Ibuprofen* (Motrin*) 600 Mg Tab, 600 MG PO Q6, #30 TAB Prov:BRAULIO CHEUNG PA-C 11/11/16 Hydrocodone/Acetaminophen (Unity 10-325 Tablet) 1 Each Tablet, 1 TAB PO Q6H PRN for PAIN, #7 TAB Prov:BRAULIO CHEUNG PA-C 11/11/16 Ondansetron (Ondansetron Odt) 4 Mg Tab.rapdis, 4 MG PO Q6H PRN for NAUSEA AND/OR VOMITING, #10 TAB Prov:BRAULIO CHEUNG PA-C 11/11/16 Azithromycin* (Zithromax*) 250 Mg Tablet, 250 MG PO .EUGENE DIRECTED, #6 TAB TAKE 500 MG (2 TABS) THE FIRST DAY THEN 250 MG (1 TAB) DAYS 2-5 Prov:AN DAMON PA-C 02/09/16 Prednisone* (Prednisone*) 20 Mg Tab, 40 MG PO DAILY for 4 Days, TAB Prov:AN DAMON PA-C 02/09/16 Medications Current Medications Acetaminophen (Tylenol Tab) 650 mg Q4H PRN PO .PAIN OR TEMP; Start 01/13/19 at 23:00 Ondansetron HCl (Zofran Inj) 4 mg Q6H PRN IV NAUSEA AND/OR VOMITING Last administered on 01/14/19at 19:20; Admin Dose 4 MG; Start 01/14/19 at 00:00 Methylergonovine Maleate (Methergine) 0.2 mg ONCE PRN IM .VAGINAL BLEEDING; Start 01/14/19 at 12:00 Oxycodone/ Acetaminophen (Percocet (5/ 325)) 1 tab Q4H PRN PO .PAIN 4-6 Last administered on 01/16/19 18:39; Admin Dose 1 TAB; Start 01/14/19 at 22:00 Oxycodone/ Acetaminophen (Percocet (5/ 325)) 2 tab Q4H PRN PO .PAIN 7-10 Last administered on 01/16/19 06:13; Admin Dose 2 TAB; Start 01/14/19 at 22:00 Ibuprofen (Motrin) 600 mg Q6 PO Last administered on 01/18/19 17:02; Admin Dose 600 MG; Start 01/15/19 at 00:00 Simethicone (Mylicon) 160 mg Q8H PRN PO .GAS Last administered on 01/16/19 20:53; Admin Dose 160 MG; Start 01/14/19 at 22:00 Lanolin (Lanolin Hpa) 1 applic BEDSIDE MEDICATION PRN TOP .NIPPLES; Start 01/14/19 at 22:00 Oxytocin/Lactated Ringer's 500 ml @ 0 mls/hr ONCE PRN IV .VAGINAL BLEEDING; Start 01/14/19 at 22:00 Carboprost Tromethamine (Hemabate) 250 mcg ONCE PRN IM .VAGINAL BLEEDING; Start 01/14/19 at 22:00 Misoprostol (Cytotec) 1,000 mcg ONCE PRN AL .VAGINAL BLEEDING; Start 01/14/19 at 22:00 Ferrous Sulfate (Ferrous Sulfate (Ec)) 325 mg BID PO Last administered on 01/18/19 09:27; Admin Dose 325 MG; Start 01/15/19 at 21:00 Labetalol HCl (Normodyne) 200 mg BID PO Last administered on 01/18/19 09:27; Admin Dose 200 MG; Start 01/17/19 at 21:00 Lactated Ringer's 1,000 ml @ 75 mls/hr [id number] IV Last administered on 01/18/19 17:02; Admin Dose 75 MLS/HR; Start 01/17/19 at 14:30 Allergies: Coded Allergies: No Known Allergy (Unverified , 01/13/19) Past Surgical History Past Surgical Hx: other (C section) Family History Significant Family History: no pertinent family hx Social History Alcohol Use: none Smoking Status: Never smoker Drug Use: none Exam/Review of Systems Exam Vitals Vital Signs Date Temp Pulse Resp B/P (MAP) Pulse Ox O2 O2 Flow FiO2 Time Delivery Rate 01/18/19 69 17 160/86 Room Air 18:00 (110) 01/18/19 98.0 16:01 01/15/19 98 20:00 Intake and Output 01/17/19 01/17/19 01/18/19 1515:00 23:00 07:00 IntakeIntake Total 1125 ml 1200 ml OutputOutput Total 800 ml 1800 ml BalanceBalance 325 ml -600 ml Exam General: Patient is laying in bed, no acute distress. answering questions appropriately Head: Normocephalic atraumatic Eyes: EOMI, pupils reactive to light. Neck: Supple, nontender, midline Respiratory: Clear to auscultation bilaterally. no wheezing or rhonchi Cardiovascular: S1, S2, regular rate and rhythm, no obvious murmurs Gastrointestinal: soft, mild tenderness around incision site, nondistended, bowel sounds heard. no rebound or guarding Neurological: Moves all extremities spontaneously Skin: mild erythema adjacent to surgical incision site on LLQ. no discharge or drainage appreciated. incision appears clean and dry with steri strips in place Results Result Diagram: 01/16/19 0756 Results 24hrs Laboratory Tests Test 01/17/19 20:47 01/18/19 02:19 01/18/19 08:15 01/18/19 14:30 Magnesium Level 4.3 H 4.9 H 5.3 *H 5.6 *H Medications Medication Current Medications Acetaminophen (Tylenol Tab) 650 mg Q4H PRN PO .PAIN OR TEMP; Start 01/13/19 at 23:00 Ondansetron HCl (Zofran Inj) 4 mg Q6H PRN IV NAUSEA AND/OR VOMITING Last administered on 01/14/19at 19:20; Admin Dose 4 MG; Start 01/14/19 at 00:00 Methylergonovine Maleate (Methergine) 0.2 mg ONCE PRN IM .VAGINAL BLEEDING; Start 01/14/19 at 12:00 Oxycodone/ Acetaminophen (Percocet (5/ 325)) 1 tab Q4H PRN PO .PAIN 4-6 Last administered on 01/16/19 18:39; Admin Dose 1 TAB; Start 01/14/19 at 22:00 Oxycodone/ Acetaminophen (Percocet (5/ 325)) 2 tab Q4H PRN PO .PAIN 7-10 Last administered on 01/16/19 06:13; Admin Dose 2 TAB; Start 01/14/19 at 22:00 Ibuprofen (Motrin) 600 mg Q6 PO Last administered on 01/18/19 17:02; Admin Dose 600 MG; Start 01/15/19 at 00:00 Simethicone (Mylicon) 160 mg Q8H PRN PO .GAS Last administered on 01/16/19 20:53; Admin Dose 160 MG; Start 01/14/19 at 22:00 Lanolin (Lanolin Hpa) 1 applic BEDSIDE MEDICATION PRN TOP .NIPPLES; Start 01/14/19 at 22:00 Oxytocin/Lactated Ringer's 500 ml @ 0 mls/hr ONCE PRN IV .VAGINAL BLEEDING; Start 01/14/19 at 22:00 Carboprost Tromethamine (Hemabate) 250 mcg ONCE PRN IM .VAGINAL BLEEDING; Start 01/14/19 at 22:00 Misoprostol (Cytotec) 1,000 mcg ONCE PRN AL .VAGINAL BLEEDING; Start 01/14/19 at 22:00 Ferrous Sulfate (Ferrous Sulfate (Ec)) 325 mg BID PO Last administered on 01/18/19 09:27; Admin Dose 325 MG; Start 01/15/19 at 21:00 Labetalol HCl (Normodyne) 200 mg BID PO Last administered on 01/18/19 09:27; Admin Dose 200 MG; Start 01/17/19 at 21:00 Lactated Ringer's 1,000 ml @ 75 mls/hr [id number] IV Last administered on 01/18/19 17:02; Admin Dose 75 MLS/HR; Start 01/17/19 at 14:30 LATESHA GRAHAM MD Jan 18, 2019 19:31
[2019-01-18] MEDS: NIFEdipine (XL) 30 MG TAB PO SCH (20:36)
[2019-01-19 04:20] VITALS: BP 117/74; PULSE 62; RESP 18
[2019-01-19] MEDS: IBUPROFEN 600 MG TAB PO SCH ×2 (05:52→12:20)
[2019-01-19] MEDS: LACTATED RINGER'S 1,000 ML IV SCH (06:30)
[2019-01-19 08:30] VITALS: BP 114/73; PULSE 81; RESP 17
--- NOTE | 2019-01-19 09:20 | CONS ---
Assessment/Plan Assessment/Plan Hospital Course (Demo Recall) 23 yo with PMH untreated HTN s/p delivery 01/14 has been experiencing uncontrolled blood pressure following delivery Assessment/Plan (Daily) 1. Uncontrolled hypertension- improved - Continue on Labetalol 200mg BID and Nicardipine 30mg BID. Discussed needing to follow up with PCP for medication adjustments as necessary. 2. - care per OB team 3. Acute blood loss anemia - stable - no transfusions required 4. Disposition - Medically stable for discharge home Thank you for allowing me to participate in the care of your patient. Please call with any questions. Consultation Date/Type/Reason Admit Date/Time Jan 14, 2019 at 00:20 Initial Consult Date 01/18/19 Type of Consult Internal medicine Date/Time of Note DATE: 01/19/19 TIME: 09:20 24 HR Interval Summary Free Text/Dictation Patient is doing well and still with some dizziness with ambulation but significantly improved. No overnight events. Exam/Review of Systems Exam Vitals Vital Signs Date Temp Pulse Resp B/P (MAP) Pulse Ox O2 O2 Flow FiO2 Time Delivery Rate 01/19/19 98.4 81 17 114/73 Room Air 08:30 (87) 01/15/19 98 20:00 Intake and Output 01/18/19 01/18/19 01/19/19 1515:00 23:00 07:00 IntakeIntake Total 200 ml OutputOutput Total 1800 ml 1800 ml 800 ml BalanceBalance -1800 ml -1600 ml -800 ml Exam General: Patient is laying in bed, no acute distress. answering questions appropriately Respiratory: Clear to auscultation bilaterally. no wheezing or rhonchi Cardiovascular: S1, S2, regular rate and rhythm, no obvious murmurs Gastrointestinal: soft, mild tenderness around incision site, nondistended, bowel sounds heard. no rebound or guarding Skin: mild erythema adjacent to surgical incision site on LLQ. no discharge or drainage appreciated. CDI Results Result Diagram: 01/16/19 0756 Results 24hrs Laboratory Tests Test 01/18/19 14:30 Magnesium Level 5.6 *H Medications Medication Current Medications Acetaminophen (Tylenol Tab) 650 mg Q4H PRN PO .PAIN OR TEMP; Start 01/13/19 at 23:00 Ondansetron HCl (Zofran Inj) 4 mg Q6H PRN IV NAUSEA AND/OR VOMITING Last administered on 01/14/19 19:20; Admin Dose 4 MG; Start 01/14/19 at 00:00 Methylergonovine Maleate (Methergine) 0.2 mg ONCE PRN IM .VAGINAL BLEEDING; Start 01/14/19 at 12:00 Oxycodone/ Acetaminophen (Percocet (5/ 325)) 1 tab Q4H PRN PO .PAIN 4-6 Last administered on 01/16/19 18:39; Admin Dose 1 TAB; Start 01/14/19 at 22:00 Oxycodone/ Acetaminophen (Percocet (5/ 325)) 2 tab Q4H PRN PO .PAIN 7-10 Last administered on 01/16/19 06:13; Admin Dose 2 TAB; Start 01/14/19 at 22:00 Ibuprofen (Motrin) 600 mg Q6 PO Last administered on 01/19/19 05:52; Admin Dose 600 MG; Start 01/15/19 at 00:00 Simethicone (Mylicon) 160 mg Q8H PRN PO .GAS Last administered on 01/16/19 20:53; Admin Dose 160 MG; Start 01/14/19 at 22:00 Lanolin (Lanolin Hpa) 1 applic BEDSIDE MEDICATION PRN TOP .NIPPLES; Start 01/14/19 at 22:00 Oxytocin/Lactated Ringer's 500 ml @ 0 mls/hr ONCE PRN IV .VAGINAL BLEEDING; Start 01/14/19 at 22:00 Carboprost Tromethamine (Hemabate) 250 mcg ONCE PRN IM .VAGINAL BLEEDING; Start 01/14/19 at 22:00 Misoprostol (Cytotec) 1,000 mcg ONCE PRN OK .VAGINAL BLEEDING; Start 01/14/19 at 22:00 Ferrous Sulfate (Ferrous Sulfate (Ec)) 325 mg BID PO Last administered on 01/18/19 21:21; Admin Dose 325 MG; Start 01/15/19 at 21:00 Labetalol HCl (Normodyne) 200 mg BID PO Last administered on 01/18/19 21:22; Admin Dose 200 MG; Start 01/17/19 at 21:00 Lactated Ringer's 1,000 ml @ 75 mls/hr [id number] IV Last administered on 01/18/19 17:02; Admin Dose 75 MLS/HR; Start 01/17/19 at 14:30 Nifedipine (Procardia Xl) 30 mg BID PO Last administered on 01/18/19at 20:36; Admin Dose 30 MG; Start 01/18/19 at 21:00 Hydralazine HCl (Apresoline) 10 mg Q4H PRN IV SBP >160; Start 01/18/19 at 19:30 LATESHA GRAHAM MD Jan 19, 2019 09:20
[2019-01-19] MEDS: NIFEdipine (XL) 30 MG TAB PO SCH (09:28)
[2019-01-19] MEDS: LABETALOL 200 MG TAB PO SCH (09:28)
[2019-01-19] MEDS: FERROUS SULFATE (EC) 325 MG TAB PO SCH (09:28)
[2019-01-19 10:35] VITALS: BP 122/73; PULSE 75; RESP 16
[2019-01-19] MEDS ORDERED: LABE200T25 PO (11:11)
[2019-01-19] MEDS ORDERED: NIFE30TA2 PO (11:11)
--- NOTE | 2019-01-19 12:01 | DS ---
Date/Time of Note Date/Time of Note DATE: 01/19/19 TIME: 12:00 Obstetrical Discharge Record Final Diagnosis Final Diagnosis: delivered Other Final Diagnosis Severe preeclampsia, low CHELLE, gastroschesis Section Section: Primary Complications Preg induced Hypertension (severe), Other (gastroschesis, oligohydramnios) Augmentation: No Induction: No Condition on Discharge Physical Assessment Last Vitals: BP 114/73 on Labetalol 200 BID and Procardia XL 30 BID Voiding: Yes Bowel Movement: Yes Breast: Filling Fundus: Firm Abdomen and Incision: Incision clean, dry and intact. The edges are red c/w either an adhesive reaction or a fungal infection, Not an infection of the incision. Calf Tenderness: No Patient Condition: ANAND Mancera MD Jan 19, 2019 12:01
[2019-01-19] MEDS ORDERED: BETAMETHASONE/CLOTRIMAZOLE 15 GM CR TOP SCH (13:00)
--- NOTE | 2019-01-20 14:40 | DELSUM ---
Delivery Summary A-C Datetime Report Generated by CPN: 01/20/2019 14:40 DELIVERY PERSONNEL Dental Surgeon: Compa Esperanza MATERNAL INFORMATION Delivery Anesthesia: Spinal Medications in Delivery: See anesthesia record Delivery QBL (ml): 550 Placenta Cultured: Yes Maternal Complications: Other RN Comments: BABY WITH GASTROSCHISIS,RH O NEGATIVE LABOR SUMMARY EDC: 02/19/2019 00:00 No. Babies in Womb: 1 Attempted: No Labor Anesthesia: None LABOR INFORMATION Reason for Induction: Chronic Hypertension Oxytocin: N/A Group B Beta Strep: Negative Antibiotics # of Doses: x1 2g Ancef Antibiotics Time of Last Dose: 01/14/2019 19:57 Steroids Given: Full Course Reason Steroids Not Administered: Indication MEMBRANES Membranes Rupture Method: Artificial Rupture of Membranes: 01/14/2019 20:17 Length of Rupture (hr): 0.02 Amniotic Fluid Color: Clear Amniotic Fluid Amount: Small Amniotic Fluid Odor: None STAGES OF LABOR Stage 3 hr: 0 Stage 3 min: 2 VAGINAL DELIVERY Episiotomy: None Laceration Extension: N/A Laceration Type: None CSECTION DELIVERY Primary Indication: Severe PIH, Unfavor Cervix Secondary Indication: N/A CSection Urgency: Non Elective CSection Incidence: Primary Labor: N/A Elective: Nonelective CSection Incision: Lower Uterine Transverse BABY A INFORMATION Infant Delivery Date/Time: 01/14/2019 20:18 Method of Delivery: Born in Route : No : N/A Forceps: N/A Vacuum Extraction: N/A Shoulder Dystocia : N/A SHOULDER DYSTOCIA BABY A Delivery Date/Time: 01/14/2019 20:18 PRESENTATION/POSITION BABY A Presentation: Breech Cephalic Presentation: N/A Breech Presentation: Marek PLACENTA INFORMATION BABY A Placenta Delivery Time : 01/14/2019 20:20 Placenta Method of Delivery: Manual Removal Placenta Status: Delivered SCORES BABY A Heart Rate 1 min: >100 bpm Resp Effort 1 min: Good Cry Reflex Irritability 1 min: Cough/Sneeze/Pulls Away Muscle Tone 1 min: Active Motion Color 1 min: Blue/Pale Resuscitation Effort 1 min: Tactile Stimulation SCORE 1 MIN: 8 Heart Rate 5 min: >100 bpm Resp Effort 5 min: Good Cry Reflex Irritability 5 min: Cough/Sneeze/Pulls Away Muscle Tone 5 min: Active Motion Color 5 min: Body [place], Extremit Blue Resuscitation Effort 5 min: Tactile Stimulation SCORE 5 MIN: 9 INFANT INFORMATION BABY A Gestational Age at Delivery: 34.6 Gestational Status: Late - 34- 36.6 Weeks Infant Outcome : Liveborn Condition : Critical Sex: Female IDENTIFICATION/MEDS BABY A ID Band Number: [id number] ID Band Location: Right Leg; Left Arm Sensor Applied: No Vitamin K Given : Not Given Erythromycin Given: Not Given WEIGHT/LENGTH BABY A Birthweight (gm): 2345 Infant Weight (lb): 5 Weight (oz): 3 Length (in): 18.00 Infant Length (cm): 45.72 CORD INFORMATION BABY A No. Cord Vessels: 3 Nuchal Cord : N/A Cord Blood Taken: Yes Suction: Mouth; Nose ASSESSMENT BABY A Infant Complications: Other Infant Complications- Other: Gastroschisis Physical Findings at Delivery: Abdominal Wall Defect Infant Respirations: Appears Normal Wall Attendant/ALS Called : Yes Infant Care By: NICU TEAM Transferred To: NICU
--- NOTE | 2019-01-23 12:48 | CONS ---
Assessment/Plan Assessment/Plan Hospital Course (Demo Recall) Hospital Course (Demo Recall) I have spoken to the mother regarding prematurity, risk for respiratory distress syndrome, infection, diagnosis of gastroschisis requiring surgery and immediate transfer to [facility], feeding problems, and risk for long-term neurodevelopmental problems in view of prematurity. Mom seems to be very familiar with problems related to prematurity and gastroschisis as she had consult at [facility] to discuss the management of gastroschisis with complications and follow-up. Mom seems to understand that risks with gastroschisis and prematurity and had appropriate questions that were answered. I took about 30 minutes to review the mother's chart , discuss her, condition with the primary cnc lathe programmer , coordinating the care with ancillary services and dictating the consult note. Thank you very much for allowing me to take part in the care of this patient, will follow the mom and the baby as needed and transferred to [facility].. [facility] team is aware of delivery today and transfer This consult is done and dictated by Dr. Gerard . Consultation Date/Type/Reason Admit Date/Time Jan 14, 2019 at 00:20 Date of Consultation: Jan 14, 2019 Type of Consult consult Reason for Consultation Type of Consult consult requested by Dr. deras for prematurity at 34 and 6/7 weeks and diagnosis of gastroschisis. Baby needs to be transferred to [facility] for surgery for gastroschisis after . Reason for Consultation Mom is 23-year-old, 1, para 0 admitted at 34 and 6/7 weeks and started on magnesium sulfate and labetalol for PIH and preeclamptic toxemia and has history of gastroschisis on ultrasound. Denies history of any significant problems during . Mom says she has consulted the children's team and they have discussed the surgery and follow-up with feeding problems with gastroschisis . She is given 1 dose of betamethasone with the second 1 to be given 12 hours after the first one and she will have section done today to deliver the baby. Date/Time of Note DATE: 01/14/19 TIME 1237 Date/Time of Note DATE: 01/23/19 TIME: 12:43 Past Medical History Medical History: hypertension Home Meds Active Scripts Labetalol Hcl* (Labetalol Hcl*) 200 Mg Tablet, 200 MG PO BID for 30 Days, #60 TAB 1 Refill Prov:LATESHA GRAHAM MD 01/19/19 Nifedipine (Procardia Xl) 30 Mg Tab.er.24, 30 MG PO BID for 30 Days, #60 TAB 1 Refill Prov:LATESHA GRAHAM MD 01/19/19 Allergies: Coded Allergies: No Known Allergy (Unverified , 01/13/19) Past Surgical History Past Surgical Hx: other (C section) Social History Alcohol Use: none Smoking Status: Never smoker Drug Use: none Exam/Review of Systems Exam Vitals Vital Signs Date Temp Pulse Resp B/P (MAP) Pulse Ox O2 O2 Flow FiO2 Time Delivery Rate 01/19/19 75 16 122/73 Room Air 10:35 (89) 01/19/19 98.4 08:30 JESSICA GERARD MD Jan 23, 2019 12:47
== END 2019-01-19 14:25 | disposition home or self-care (01) | DRG 787 ==
LOC: OBT 22:25 → L-D 22:27 → OBT 01-14 00:20 → L-D 01-14 02:48 → PP1 01-15 00:09
PROVIDERS: ADMIT Obstetrics & Gynecology; ATTEND Obstetrics & Gynecology
PROC: 10D00Z1 Extraction of Products of Conception, Low, Open Approach (ICD-10-PCS; principal; 2019-01-15)
DX: O11.4 Pre-existing hypertension with pre-eclampsia, complicating childbirth (principal); O41.03X0 Oligohydramnios, third trimester, not applicable or unspecified; O90.81 Anemia of the puerperium; D62 Acute posthemorrhagic anemia; O35.8XX0 Maternal care for other (suspected) fetal abnormality and damage, not applicable or unspecified; O32.1XX0 Maternal care for breech presentation, not applicable or unspecified; Z3A.34 34 weeks gestation of pregnancy; Z37.0 Single live birth
CPT/HCPCS: 36415; 76815; 76817; 76818; 80053; 80307; 81001; 83735; 84560; 85025; 85384; 85610; 85730; 86592; 86850; 86885; 86900; 86901; 87340; 99464; G0463; J0690; J0702; J1885; J2274; J2405; J2590; J2765; J2790; J3475; J7120